=== PATIENT | female | born 1940 | race Caucasian/White ===

== ENCOUNTER 2017-01-11 10:29 | Emergency (ER) | payer MEDICARE ==
[2017-01-11 11:36] LABS: Hematocrit 34 % (35-47); Hemoglobin 11.2 g/dl (12.0-16.0); Mean Corpuscular HGB Conc 33 g/dl (31-36); Mean Corpuscular Hemoglobin 27 pg (27-31); Mean Corpuscular Volume 84 fL (80-97); Mean Platelet Volume 9 um3 (7.4-10.4); Red Blood Count 4.08 10^6/ul (4.0-5.4); Red Cell Distribution Width 15 % (10.5-15); White Blood Count 10.6 10^3/ul (3.5-10.8)
[2017-01-11 11:53] LABS: Albumin 3.9 g/dL (3.2-5.2); BUN/Creatinine Ratio 20.7 (8-20); C Reactive Protein 2.47 mg/L (< 5.00); Calcium 9.6 mg/dL (8.6-10.3); EGFR African American 87.2 (>60); EGFR Non-African American 67.8 (>60); Potassium 3.9 mmol/L (3.5-5.0); Total Bilirubin 0.9 mg/dL (0.2-1.0); Total Protein 5.9 g/dL (6.4-8.9)
[2017-01-11] MEDS ORDERED: Iohexol 300* (CONTRAST) 10 ML SDV IV ONE (11:58)
--- NOTE | 2017-01-11 12:44 | RAD ---
HISTORY: Dysphagia COMPARISONS: August 08, 2013, PET/CT dated August 14, 2013 TECHNIQUE: Multiple contiguous axial CT scans were obtained of the neck after the administration of nonionic intravenous contrast, with coronal and sagittal multiplanar reformations. FINDINGS: BRAIN AND ORBITS: The visualized brain and orbits are normal. PARANASAL SINUSES: The visualized paranasal sinuses are clear. SALIVARY GLANDS: The parotid glands, submandibular glands, sublingual glands are normal. NASAL CAVITY/NASOPHARYNX: The nasal cavity and nasopharynx are normal. ORAL CAVITY/OROPHARYNX: The oral cavity is obscured by streak artifact from dental amalgam. The visualized oral cavity and oropharynx are unremarkable. LARYNGEAL APPARATUS/HYPOPHARYNX: The laryngeal apparatus and hypopharynx are normal. UPPER AIRWAY/UPPER ESOPHAGUS: The visualized upper airway and esophagus are normal. LUNG APICES: The lung apices are clear. THYROID GLAND: The thyroid is heterogeneous with multiple small nodules measuring up to 1 cm in size. LYMPH NODES: There are scattered small, less than 1 cm short axis, lymph nodes noted along the anterior and posterior cervical chain. There is no lymphadenopathy by size criteria. There is been interval resolution of the lymphadenopathy noted on the previous examination. VASCULATURE: There is calcification of the carotid bifurcations. BONES AND SOFT TISSUES: Degenerative changes are noted OTHER: None. IMPRESSION: INTERVAL RESOLUTION OF THE LYMPHADENOPATHY NOTED ON THE PREVIOUS EXAMINATION. MULTINODULAR GOITER. OTHERWISE UNREMARKABLE CT OF THE NECK. THE AIRWAY IS WIDELY PATENT.
[2017-01-11 14:36] VITALS: BP 132/58
--- NOTE | 2017-01-11 17:25 | ED ---
Bonnie Arvizu Gabriel, scribed for Isma Gates MD on 01/11/17 at 1108 . Respiratory - HPI Summary HPI Summary: This patient is a 76 year old F presenting to [facility] accompanied by family with a chief complaint of her throat closing up since last night. Pt reports having difficulty breathing and swallowing. She also reports positive exposure to an ill woman. Patient denies any pain. - History of Current Complaint Chief Complaint: EDGeneral Stated Complaint: FEELS LIKE THROAT IS CLOSING Time Seen by Provider: 01/11/17 10:49 Hx Obtained From: Patient Onset/Duration: Still Present Initial Severity: Severe - Pt claims it was very bad last night Current Severity: Mild Pain Intensity: 0 Sputum Amount: None Alleviating Factor(s): Nothing - Allergy/Home Medications Allergies/Adverse Reactions: Allergies Allergy/AdvReac Type Severity Reaction Status Date / Time Sulfa Antibiotics Allergy Headache Verified 08/08/13 12:45 Terbinafine [From Lamisil] Allergy GI Upset Verified 08/08/13 12:45 PMH/Surg Hx/FS Hx/Imm Hx Previously Healthy: No Endocrine/Hematology History: Denies: Hx Diabetes Cardiovascular History: Denies: Hx Hypertension - Cancer History Cancer Type, 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 Infectious Disease History: No Infectious Disease History: Denies: Traveled Outside the [place] in Last 30 Days - Family History Known Family History: Positive: Hypertension, Diabetes, Other - Father had bladder cancer - Social History Alcohol Use: None Substance Use Type: Reports: None Smoking Status (MU): Never Smoked Tobacco Review of Systems Positive: Other - Difficulty breathing and swallowing Negative: Myalgia - denies general pain All Other Systems Reviewed And Are Negative: Yes Physical Exam - Summary Physical Exam Summary: Appearance: Well-appearing Eyes: Normal, Conjunctiva clear ENT: Normal ENT inspection. Pharynx normal, negative pharyngeal erythema, negative tonsillar exudate, TMs normal, negative TMs dull, negative TMs bulging , negative TMs red Speech: Patient has a slightly muffled voice. Dental: Normal Neck: Supple, non-tender, no lymphadenopathy Lungs: Lungs clear, normal breath sounds, no respiratory distress, no accessory muscle use Heart: RRR, no murmur, pulses normal. Abdomen: Nontender, soft. Musculoskeletal: Normal Neurological: Normal Psychiatric: Normal Skin: Normal Triage Information Reviewed: Yes Vital Signs On Initial Exam: Initial Vitals Temp Pulse Resp BP Pulse Ox 97.9 F 87 18 131/63 94 01/11/17 10:30 01/11/17 10:30 01/11/17 10:30 01/11/17 10:30 01/11/17 10:30 Vital Signs Reviewed: Yes - [place] Coma Scale Coma Scale Total: 15 Diagnostics - Vital Signs Vital Signs Temp Pulse Resp BP Pulse Ox 01/11/17 10:30 97.9 F 87 18 131/63 94 - Laboratory Lab Results: Lab Results 01/11/17 01/11/17 01/11/17 Range/Units 11:15 11:15 13:42 WBC 10.6 (3.5-10.8) 10^3/ul RBC 4.08 (4.0-5.4) 10^6/ul Hgb 11.2 L (12.0-16.0) g/dl Hct 34 L (35-47) % MCV 84 (80-97) fL MCH 27 (27-31) pg MCHC 33 (31-36) g/dl RDW 15 (10.5-15) % Plt Count 208 (150-450) 10^3/ul MPV 9 (7.4-10.4) um3 Neut % (Auto) 77.0 (38-83) % Lymph % (Auto) 12.1 L (25-47) % [place] % (Auto) 9.7 H (1-9) % Eos % (Auto) 0.7 (0-6) % Baso % (Auto) 0.5 (0-2) % Absolute Neuts (auto) 8.2 H (1.5-7.7) 10^3/ul Absolute Lymphs (auto) 1.3 (1.0-4.8) 10^3/ul Absolute Monos (auto) 1.0 H (0-0.8) 10^3/ul Absolute Eos (auto) 0.1 (0-0.6) 10^3/ul Absolute Basos (auto) 0 (0-0.2) 10^3/ul Absolute Nucleated RBC 0 10^3/ul Nucleated RBC % 0 Sodium 134 (133-145) mmol/L Potassium 3.9 (3.5-5.0) mmol/L Chloride 102 (101-111) mmol/L Carbon Dioxide 26 (22-32) mmol/L Anion Gap 6 (2-11) mmol/L BUN 17 (6-24) mg/dL Creatinine 0.82 (0.51-0.95) mg/dL Est GFR ( Amer) 87.2 (>60) Est GFR (Non-Af Amer) 67.8 (>60) BUN/Creatinine Ratio 20.7 H (8-20) Glucose 114 H (70-100) mg/dL Calcium 9.6 (8.6-10.3) mg/dL Total Bilirubin 0.90 (0.2-1.0) mg/dL AST 24 (13-39) U/L ALT 21 (7-52) U/L Alkaline Phosphatase 85 (34-104) U/L C-Reactive Protein 2.47 (< 5.00) mg/L Total Protein 5.9 L (6.4-8.9) g/dL Albumin 3.9 (3.2-5.2) g/dL Globulin 2.0 (2-4) g/dL Albumin/Globulin Ratio 2.0 (1-3) Group A Strep Rapid Negative (Negative) Result Diagrams: 01/11/17 11:15 01/11/17 11:15 Lab Statement: Any lab studies that have been ordered have been reviewed, and results considered in the medical decision making process. - CT CT Neck CT Interpretation Completed By: Radiologist - INTERVAL RESOLUTION OF THE LYMPHADENOPATHY NOTED ON THE PREVIOUS EXAMINATION. MULTINODULAR GOITER. OTHERWISE UNREMARKABLE CT OF THE NECK. THE AIRWAY IS WIDELY PATENT.ED physician has reviewed this radiology report and agrees. Disposition - Course Course Of Treatment: Ms. Louie presented having awakened this AM with the feeling that her throat was closing off and her voice was different. She has a history of leukemia with extensive cervical lymphadenopathy causing the same type of symptoms three years ago. This was ruled out with a CT scan. I think this is likely viral. Her chest was not imaged and a mass pressing on the recurrent laryngeal nerve could conceivably cause thes symptoms. She was not having any problems breathing or swallowing and I recommended close F/U. - Diagnoses Provider Diagnoses: Laryngitis Discharge - Discharge Plan Condition: Stable Disposition: HOME Patient Education Materials: Laryngitis (ED) Referrals: Ford Correa MD [Primary Care Provider] - Additional Instructions: Follow up with Dr. Saavedra and Dr. Correa in 3-4 days. RETURN TO THE EMERGENCY DEPARTMENT FOR CHANGING OR WORSENING SYMPTOMS. The documentation as recorded by the Bonnie justice Gabriel accurately reflects the service I personally performed and the decisions made by me, Isma Gates MD.
== END 2017-01-11 14:36 | disposition home or self-care (01) ==
LOC: ED 10:29
DX: J04.0 Acute laryngitis (principal)
CPT/HCPCS: 36415; 70491; 80053; 85025; 86140; 87651; 99282; Q9967

== ENCOUNTER 2017-01-16 11:17 | Emergency (ER) | payer MEDICARE ==
[2017-01-16] MEDS ORDERED: guaiFENesin/CODIEN 100MG-10MG* 5 ML UDC PO ONE (11:49)
--- NOTE | 2017-01-16 12:23 | RAD ---
INDICATION: Cough COMPARISON: None TECHNIQUE: PA and lateral views of the chest were obtained. FINDINGS: There appears to be a mild degree of cardiomegaly. The heart and mediastinum otherwise are normal in contour. The pulmonary vasculature appears mildly indistinct and possibly engorged. There is no focal or lobar consolidation. The diaphragm and costophrenic angles are adequately defined. Visualized bones are normal for the patient's age. There is no radiographic evidence of free air beneath the diaphragm IMPRESSION: IN THE CORRECT CLINICAL PRESENTATION THE CHEST X-RAY FINDINGS COULD BE SEEN IN THE SETTING OF MILD CARDIOGENIC PULMONARY EDEMA.
--- NOTE | 2017-01-16 13:45 | RAD ---
INDICATION: Worsening cough and congestion over the past 5 days. COMPARISON: PET/CT dated August 14, 2013 TECHNIQUE: Axial source images of the chest were acquired without intravenous contrast from just above the lung apices to the base of the diaphragm. Coronal and sagittal reconstructed images were acquired. FINDINGS: Unless otherwise specified comparisons made below reference the August 14, 2013 PET/CT. Overall the lungs exhibit centrilobular emphysematous changes. At the right middle lobe there is a 4 mm pulmonary nodule (image 36) not A seen on the previous PET/CT. At the same level there is a 2 mm pulmonary nodule more anteriorly located that appears to correspond to the same nodule seen on the prior PET/CT. There is a small right-sided pleural effusion not seen on the prior PET/CT. The heart is moderately enlarged measuring greater than 50% the width of the thorax. There is calcified atherosclerosis at the coronary arteries and arch of the aorta. There is no readily apparent mediastinal, hilar, or axillary lymphadenopathy. Degenerative changes of the thoracic spine includes loss of intervertebral disc height, marginal osteophyte formation, vacuum disc phenomenon and endplate sclerosis at L1/L2 and L2/L3. There are no definite suspicious focal bone lesions. Limited views of the upper abdomen show no acute abnormalities. IMPRESSION: 1. Interval finding since the August 14, 2013 PET/CT are most consistent with mild cardiogenic pulmonary edema including a small right-sided pleural effusion. 2. There is a 4 mm pulmonary nodule of the right middle lobe not definitely seen on the previous CT examination. This can be followed according to the Fleischner Society criteria. THE RECOMMENDATIONS FOR FOLLOWUP AND MANAGEMENT OF AN INCIDENTALLY DETECTED PULMONARY NODULE LESS THAN 6 MM IN SIZE, IN A PATIENT WITHOUT A HISTORY OF MALIGNANCY, INCLUDE NO FOLLOWUP FOR A LOW-RISK PATIENT OR OPTIONAL FOLLOWUP CT IN 12 MONTHS FOR A HIGH RISK PATIENT. NOTES: SIZE = AVERAGE LENGTH AND WIDTH; HIGH RISK IS DEFINED A HISTORY OF SMOKING OR OTHER KNOW RISK FACTORS FOR LUNG CANCER; LOW RISK IS DEFINED MINIMAL OR ABSENT HISTORY OF SMOKING OR OTHER KNOWN RISK FACTORS. Hiren Raymundo, HAYLEE Armijo, HUMERA Smith, et al (2017) "Guidelines for Management of Incidental Pulmonary Nodules Detected on CT Images: From the Fleischner Society 2017." Radiology; 284(1): 228-243. doi:10.1148/radiol.[id number]
[2017-01-16 14:18] VITALS: BP 144/73
--- NOTE | 2017-01-16 16:12 | ED ---
Chepe Arvizu SooYoung, scribed for Isma Gates MD on 01/16/17 at 1142 . Respiratory - HPI Summary HPI Summary: A 76 y/o F presents to ED with c/o losing her voice onset 6 days ago and worsening 5 days ago. Pt was last seen in ED on 01/11/17, dx: laryngitis, and has not improved since. Associated sx: dyspnea, productive cough, mild sinus congestion, watery eyes. OTC medicines have not alleviated the cough. - History of Current Complaint Chief Complaint: EDUpperRespComplaint Stated Complaint: COUGH/DIFF BREATHING Time Seen by Provider: 01/16/17 11:38 Hx Obtained From: Patient, Family/Admissions Counselor Onset/Duration: Gradual Onset, Lasting Days, Still Present Timing: Constant Initial Severity: Moderate Current Severity: Moderate Pain Intensity: 0 - out of 10 Character: Cough (Productive), Dyspnea at Rest Associated Signs and Symptoms: Nasal Congestion, Dyspnea, Hoarseness - loss of voice - Allergy/Home Medications Allergies/Adverse Reactions: Allergies Allergy/AdvReac Type Severity Reaction Status Date / Time Sulfa Antibiotics Allergy Headache Verified 08/08/13 12:45 Terbinafine [From Lamisil] Allergy GI Upset Verified 08/08/13 12:45 PMH/Surg Hx/FS Hx/Imm Hx Previously Healthy: No Endocrine/Hematology History: Denies: Hx Diabetes Cardiovascular History: Denies: Hx Hypertension - Cancer History Cancer Type, 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 - Surgical History Surgery Procedure, Year, and Place: C-SECTIONS X 3, HYSTERECTOMY, BLADDER SURGERY, TRIGGER FINGER X 2, [place] Infectious Disease History: No Infectious Disease History: Denies: Traveled Outside the [place] in Last 30 Days - Family History Known Family History: Positive: Hypertension, Diabetes, Other - Father had bladder cancer - Social History Occupation: Retired Lives: With Family Alcohol Use: None Hx Substance Use: No Substance Use Type: Reports: None Hx Tobacco Use: No Smoking Status (MU): Never Smoked Tobacco Review of Systems Positive: Drainage Positive: Other - loss of voice/hoarseness; chest congestion Positive: Cough, Other - pos: dyspnea All Other Systems Reviewed And Are Negative: Yes Physical Exam - Summary Physical Exam Summary: The patient is well-nourished in no acute distress and in no acute pain. The skin is warm and dry and skin color reflects adequate perfusion. HEENT: The head is normocephalic and atraumatic. The pupils are equal and reactive. The conjunctivae are clear and without drainage. Nares are patent and without drainage. Mouth reveals moist mucous membranes and the throat is without erythema and exudate. Pt's is whispering, has lost voice. The external ears are intact. The ear canals are patent and without drainage. The tympanic membranes are intact. Neck is supple with full range of motion and non-tender. There are no carotid bruits. There is no neck vein distension. Respiratory: Chest is non-tender. Lungs are clear to auscultation and breath sounds are symmetrical and equal. Cardiovascular: Heart is regular rate and rhythm. There is no murmur or rub auscultated. There is no peripheral edema and pulses are symmetrical and equal. Abdomen: The abdomen is soft and non-tender. There are normal bowel sounds heard in all four quadrants and there is no organomegaly palpated. Musculoskeletal: There is no back pain noted. Extremities are non-tender with full range of motion. There is good capillary refill. There is no peripheral edema or calf tenderness elicited. Neurological: Patient is alert and oriented to person, place and time. The patient has symmetrical motor strength in all four extremities. Cranial nerves are grossly intact. Deep tendon reflexes are symmetrical and equal in all four extremities. Psychiatric: The patient has an appropriate affect and does not exhibit any anxiety or depression. Triage Information Reviewed: Yes Vital Signs On Initial Exam: Initial Vitals Temp Pulse Resp BP Pulse Ox 98.4 F 95 18 129/71 96 01/16/17 11:19 01/16/17 11:19 01/16/17 11:19 01/16/17 11:19 01/16/17 11:19 Vital Signs Reviewed: Yes Diagnostics - Vital Signs Vital Signs Temp Pulse Resp BP Pulse Ox 01/16/17 11:19 98.4 F 95 18 129/71 96 - Laboratory Lab Statement: Any lab studies that have been ordered have been reviewed, and results considered in the medical decision making process. - Radiology CXR Xray Interpretation: Positive (See Comments) - IMPRESSION: In the correct clinical presentation the CXR findings could be seen in the setting of mild cardiogenic pulmonary edema. ED physician has reviewed this radiology report and agrees. Radiology Interpretation Completed By: Radiologist - CT CHEST CT CT Interpretation: Positive (See Comments) - IMPRESSION: 1. Interval finding since the August 14, 2013 PET/CT are most consistent with mild cardiogenic pulmonary edema including a small right-sided pleural effusion. 2. There is a 4 mm pulmonary nodule of the right middle lobe not definitely seen on the previous CT examination. This can be followed according to the Fleischner Society criteria. THE RECOMMENDATIONS FOR FOLLOWUP AND MANAGEMENT OF AN INCIDENTALLY DETECTED PULMONARY NODULE LESS THAN 6 MM IN SIZE, IN A PATIENT WITHOUT A HISTORY OF MALIGNANCY, INCLUDE NO FOLLOWUP FOR A LOW-RISK PATIENT OR OPTIONAL FOLLOWUP CT IN 12 MONTHS FOR A HIGH RISK PATIENT. NOTES: SIZE = AVERAGE LENGTH AND WIDTH; HIGH RISK IS DEFINED A HISTORY OF SMOKING OR OTHER KNOW RISK FACTORS FOR LUNG CANCER; LOW RISK IS DEFINED MINIMAL OR ABSENT HISTORY OF SMOKING OR OTHER KNOWN RISK FACTORS. ED physician has reviewed this radiology report and agrees. CT Interpretation Completed By: Radiologist Re-Evaluation - Re-Evaluation 1 Re-Evaluation Time: 12:35 Change: Unchanged Comment: Discussing results pt and . Discussing doing CT scan. Pt agrees. 2 Re-Evaluation Time: 13:56 Change: Unchanged Comment: Discussing CT results with pt. Pt voiced understanding. Disposition - Course Course Of Treatment: I saw Ms. Louie 5 days ago for similar symptoms which have now worsened and include a cough. I thought it was all viral at the time but was a little concerned for the possibility of a chest mass. That was ruled out today and I am continuing to treat her symptomatically. - Diagnoses Provider Diagnoses: Laryngitis, URI (upper respiratory infection) Discharge - Discharge Plan Condition: Stable Disposition: HOME Prescriptions: Guaifenesin-Codeine [Codeine/Guaifenesin 100-10 mg/5Ml] 1 sirena PO Q4HR PRN #25 sirena MDD 5 PRN Reason: Cough Patient Education Materials: Guaifenesin (By mouth), Laryngitis (ED), Upper Respiratory Infection (ED) Referrals: Ford Correa MD [Primary Care Provider] - 1 Week (Follow up this week.) Stacia Saavedra MD [Medical Doctor] - 1 Week (Follow up this week.) Additional Instructions: Please follow up with both your primary care provider and Dr. Saavedra, oncology , this week. Please return to the ED if you experience new or worsening symptoms. The documentation as recorded by the Chepe justice SooYoung accurately reflects the service I personally performed and the decisions made by me, Isma Gates MD.
== END 2017-01-16 14:16 | disposition home or self-care (01) ==
LOC: ED 11:17
DX: J06.9 Acute upper respiratory infection, unspecified (principal); R09.81 Nasal congestion; R06.00 Dyspnea, unspecified; J04.0 Acute laryngitis
CPT/HCPCS: 71020; 71250; 99282; A9270-GY

== ENCOUNTER 2017-01-17 11:09 | Emergency (ER) | payer MEDICARE ==
[2017-01-17 15:10] VITALS: BP 149/72
--- NOTE | 2017-01-17 17:10 | ED ---
Throat Pain/Nasal Congestion - HPI Summary HPI Summary: Pt here w/ nasal congestion. States she can't breath out of her nose d/t congestion so has been mouth breathing at night. She reports mouth is dry as a result. She reports URI sx started on 01/10/2017 with laryngitis. She came to ED following day - reported she felt like her throat was closing the night before and she had trouble breathing - felt like she couldn't swallow. Dr. Gates examined pt and assessed labs as well as a soft tissue neck CT as pt has a h/o leukemia involving with extensive cervical lymphadenopathy causing the same type of symptoms three years ago. This was ruled out with a CT scan on . Dr. Gates suspected the pt's sx were viral as she had been exposed to an ill woman prior to sx starting. Per note, pt was not having problems breathing or swallowing that day however close f/u was recommended (d/c states see PCP and Dr. Saavedra in 3-4 days). Pt and admit she did not f/u w/ PCP. Tried home remedies and on 01/16/2017 returned to ED with ongoing laryngitis and a cough. Was seen again by Dr. Gates who was concerned for a chest mass possibly pressing onto laryngeal nerve - chest CT was ordered and revealed....... Her PE notes and vitals continue to be WNL. She was again dx'd w / viral URI and sent home with guaifenesin and codeine for cough. She reports taking the medication w/o relief of cough last night. Today, she is not concerned about cough but rather nasal congestion. States this plugged her breathing through nose last night causing her to mouth breath making her mouth even more dry than usual (states she takes chemo medications through Dr. Saavedra that typically cause dry mouth anyway - worse today). She has not tried a humidifier and heat in house is 70F. She also has not tried saline nasal wash/spray, nasal spray of any type nor blowing nose in the shower, etc. She has been drinking water but this is sore. Decreased appetite as she states she can't taste food. Today she also has onset of B/L eye discharge - wiped out this morning after waking. Vision is blurred when d/c is in eyes - mild irritation but otherwise seeing well. Has not tried anything in eyes since this started and wears glasses (not wearing contact lenses) and does not wear make- up. Asked if she's had h/o sinus infection - she admits maybe in the past, not sure if this feels the same today. Denies fever, chills, N/V/D, chest pain, SOB , ab pain, leg swelling, body aches, headache or neck pain. No recent anbx or steroids. 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 Saavedra Denies: Hx Anticoagulant Therapy, Hx Diabetes Cardiovascular History: Denies: Hx Hypertension Respiratory History: Denies: Hx Asthma, Hx Chronic Obstructive Pulmonary Disease (COPD), Hx Sleep Apnea - Cancer History Cancer Type, 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 - Surgical History Surgery Procedure, Year, and Place: C-SECTIONS X 3, HYSTERECTOMY, BLADDER SURGERY, TRIGGER FINGER X 2, B[facility] Infectious Disease History: No Infectious Disease History: Denies: Traveled Outside the [place] in Last 30 Days - Family History Known Family History: Positive: Hypertension, Diabetes, Other - Father had bladder cancer - Social History Occupation: Retired Lives: With Family - Alcohol Use: None Hx Substance Use: No Substance Use Type: Reports: None Hx Tobacco Use: No Smoking Status (MU): Never Smoked Tobacco Review of Systems Constitutional: Negative Negative: Fever, Chills, Fatigue Positive: Drainage Positive: Sore Throat, Other - nasal congestion. Negative: Ear Ache Cardiovascular: Negative Negative: Palpitations, Chest Pain Respiratory: Negative Positive: Cough - dry, better today. Negative: Shortness Of Breath Gastrointestinal: Negative Negative: Abdominal Pain, Vomiting, Diarrhea, Nausea Genitourinary: Other - still urinating Negative: dysuria, discharge, frequency, flank pain, hematuria, incontinence, pain, urgency Musculoskeletal: Negative Negative: Arthralgia, Myalgia Skin: Negative Negative: Rash Neurological: Negative Negative: Headache, Weakness, Paresthesia, Numbness, Syncope, Slurred Speech Psychological: Normal All Other Systems Reviewed And Are Negative: Yes Physical Exam Triage Information Reviewed: Yes Vital Signs On Initial Exam: Initial Vitals Temp Pulse Resp BP Pulse Ox 98.4 F 94 16 142/76 95 01/17/17 11:21 01/17/17 11:21 01/17/17 11:21 01/17/17 11:21 01/17/17 11:21 Vital Signs Reviewed: Yes Appearance: Positive: No Pain Distress - pt is sleeping upon entrance. She is easily rousable and is present w/ her., Well-Nourished Skin: Positive: Warm, Dry - no rash, no turgor Head/Face: Positive: Normal Head/Face Inspection - Sinuses NTTP Eyes: Positive: EOMI, PILO, Conjunctiva Inflammed - mild, Discharge - purulent d /c in B/L eyes, Other: - sclera are clear and w/o lesions -B/L eyes cleaned with sterile eye wash - pt reports improvement of vision and relief of irritation ENT: Positive: Hearing grossly normal, Pharyngeal erythema - cobblestoning, Nasal congestion - dried mucous occluding B/L nasal passages - no erythema, no edema, no bleeding observed of mucosal tissue, TMs normal, Uvula midline, Other - oral mucosa dry - appears raw in areas w/ white coating and mild erythema in areas. Negative: Tonsillar swelling, Tonsillar exudate, Sinus tenderness Dental: Negative: Abscess @ Neck: Positive: Supple, Nontender, No Lymphadenopathy Respiratory/Lung Sounds: Positive: Clear to Auscultation, Breath Sounds Present. Negative: Rales, Rhonchi, Stridor, Wheezes Cardiovascular: Positive: Normal, RRR, S1, S2. Negative: Murmur, Rub, Leg Edema Left, Leg Edema Right Abdomen Description: Positive: Nontender, No Organomegaly, Soft Bowel Sounds: Positive: Present Pelvic Exam: Positive: other - deferred Musculoskeletal: Positive: Normal, Strength/ROM Intact Neurological: Positive: Normal, Sensory/Motor Intact, Alert, Oriented to Person Place, Time, CN Intact II-III Psychiatric: Positive: Normal - Rudolph Coma Scale Coma Scale Total: 15 Diagnostics - Vital Signs Vital Signs Temp Pulse Resp BP Pulse Ox 01/17/17 15:09 98.7 F 93 22 149/72 93 01/17/17 11:21 98.4 F 94 16 142/76 95 - Laboratory Lab Statement: Any lab studies that have been ordered have been reviewed, and results considered in the medical decision making process. EENT Course/Dx - Course Course Of Treatment: Pt presents for 3rd visit to ED in past 7 days (was seen by Dr. Gates 01/11/2017 and 01/16/2017 - labs and imaging performed as in HPI). She has been dx'd w/ viral URI and has been trying OTC meds w/o relief. After being seen yesterday, she was rx'd guaifenesin w/ codeine for cough. Today she is reporting nasal congestion w/o trying nasal products for relief. Concerned that perhaps guaifenesin which can cause mucosal dryness along w/ mouth breathing in conjunction w/ her chemo meds causing dry mouth exacerbated these sx last night. Her previous notes (HPI and PE) do not indicate mucosal dryness and pt does not report oral dryness until today. Encouraged again humidification , turning heat to 68F or less to avoid loss of moisture in the air, saline nasal wash, blowing nose in hot shower to dislodge copious nasal blockage from dry nasal phlegm and trying fluids in addition to water such as broth, smoothies , etc. Discussed w/ Dr. Roblero to see if she needed PO anbx for possible bacterial infection of resp tract - decided to refrain at this time as she recently had labs performed, vitals are unremarkable and she does not take steroids, etc. She does not appear to have a sinus infection, ear infection and chest is still clear (CXR and CT performed yesterday). She and agree w/ plan. She also has B/L onset of conjunctivitis. Pt reports feeling better after cleaning eyes today - cx taken as she is immunopcompromised - advised saline eye wash until cx returns to avoid chemical irritation from unnecessary anbx as typically B/L onset of conjunctivitis is viral. She and agree w / plan. Regarding her dry oral mucous membranes, discussed w/ Dr. Roblero who suggests this could be thrush as again, pt is immunocompromised. This could explain dysphaghia and oral presentation. Magic mouthwash was discussed w/ pt and - they agree w/ plan. Advised close f/u w/ PCP or Dr. Saavedra. Asked pt and if they have followed-up yet with PCP and they said they called today but couldn't get in for an appt. Discussed that oral thrush needs follow-up with PCP or Dr. Saavedra as system is working hard to fight infection - call to schedule BENNY. Also discussed if oral thrush is treated but mucous membranes remain dry, speak with Dr. Saavedra about possible medication adjusment. Pt agrees w/ plan. - Diagnoses Provider Diagnoses: URI (upper respiratory infection), Thrush, Viral conjunctivitis of both eyes Discharge - Discharge Plan Condition: Stable Disposition: HOME Prescriptions: Magic M W2 Duarte/Maal/Nyst/Lido* 5 ml SWISH SWAL QID #200 ml Patient Education Materials: Oral Candidiasis (ED), Upper Respiratory Infection (ED) Referrals: Ford Correa MD [Primary Care Provider] - Additional Instructions: You appear to have a viral infection lasting 7 days now. This may continue for another 7 days (or longer). *For your viral conjunctivitis, you may flush your eyes multiple times a day with saline solution. *For your nasal congestion, it is advised that you try blowing your nose while in a hot/steamy shower - you may recreate this by also using a facial steam and saline nasal spray to keep mucosa moist. If congestion persists despite clearing mucous from nose, you may try Afrin nasal spray 2 x day for 3 days only. *Continue to use humidification and lower heat to 68F or less to avoid dry air. *If your medication continues to cause excessive dryness of mucous membranes, consult with your oncologist for supportive care or alternative medication. *For your oral dryness, you are encouraged to stay hydrated. There is concern you may have secondary thrush here - an oral swish and swallow medication was started today. Complete course and follow-up with PCP. Call your PCP today for follow-up. *If you develop fever, chills, nausea, vomiting, diarrhea, difficulty breathing/ swallowing, return to ED
--- NOTE | 2017-01-19 09:50 | PN ---
Progress Note - Progress Note Date of Service: 01/17/17 Note: wound culture results obtained. preliminary showed 1+ h flu. however final showed no organisms. patient was admitted. no further changes required at this time.
== END 2017-01-17 15:09 | disposition home or self-care (01) ==
LOC: ED 11:09
DX: J06.9 Acute upper respiratory infection, unspecified (principal); B37.9 Candidiasis, unspecified; B30.9 Viral conjunctivitis, unspecified; Z88.2 Allergy status to sulfonamides
CPT/HCPCS: 87070; 87077; 87185; 87205; 99282

== ENCOUNTER 2017-01-17 17:35 | Inpatient (IN) | payer MEDICARE ==
[2017-01-17] MEDS: NS 0.9% 1000 ML* 1,000 ML IV SCH (18:28)
[2017-01-17] MEDS: Azithromycin IV(*) 500 MG in NS 0.9% 250 ML* 250 ML IVPB SCH (19:09)
[2017-01-17] MEDS: Famotidine TAB* 20 MG PO SCH (20:29)
[2017-01-17] MEDS: Benzonatate CAP* 100 MG PO SCH (20:30)
[2017-01-17] MEDS: Erythromycin OPTH OINT* APPLIC OINT BOTH EYES SCH (20:31)
[2017-01-17] MEDS: Heparin VIAL(*) 5000 UNITS/ML VIAL (FIVE THOUSAND) SUBCUT SCH (20:31)
[2017-01-17] MEDS: guaiFENesin/CODIEN 100MG-10MG* 5 ML UDC PO PRN (23:13)
[2017-01-18] MEDS: NS 0.9% 1000 ML* 1,000 ML IV SCH (02:33)
[2017-01-18] MEDS: guaiFENesin/CODIEN 100MG-10MG* 5 ML UDC PO PRN (04:12)
[2017-01-18 05:05] LABS: Hematocrit 32 % (35-47); Hemoglobin 10.7 g/dl (12.0-16.0); Mean Corpuscular HGB Conc 33 g/dl (31-36); Mean Corpuscular Hemoglobin 27 pg (27-31); Mean Corpuscular Volume 81 fL (80-97); Mean Platelet Volume 9 um3 (7.4-10.4); Red Blood Count 3.98 10^6/ul (4.0-5.4); Red Cell Distribution Width 14 % (10.5-15); White Blood Count 13.5 10^3/ul (3.5-10.8)
[2017-01-18 05:07] LABS: Comments Flag Yes
[2017-01-18 05:39] LABS: Albumin 3.5 g/dL (3.2-5.2); BUN/Creatinine Ratio 17.4 (8-20); Calcium 8.2 mg/dL (8.6-10.3); EGFR African American 169.9 (>60); EGFR Non-African American 132.1 (>60); Globulin 2.4 g/dL (2-4); Potassium 3.8 mmol/L (3.5-5.0); Total Bilirubin 0.8 mg/dL (0.2-1.0); Total Protein 5.9 g/dL (6.4-8.9)
[2017-01-18] MEDS: Heparin VIAL(*) 5000 UNITS/ML VIAL (FIVE THOUSAND) SUBCUT SCH ×2 (06:07→15:11)
[2017-01-18] MEDS ORDERED: Morphine INJ* 2 MG/ML 1 ML SYRINGE (TWO MG - NEW SYRINGE VERSION) ONE (06:43)
--- NOTE | 2017-01-18 07:54 | RAD ---
HISTORY: Respiratory distress COMPARISONS: CT dated January 16, 2017, chest x-ray dated January 16, 2017. VIEWS: 1: frontal portable view of the chest at 7:30 AM FINDINGS: LINES AND TUBES: None. CARDIOMEDIASTINAL SILHOUETTE: The cardiac silhouette is enlarged. The cardiomediastinal silhouette is otherwise normal for portable technique. PLEURA: The costophrenic angles are sharp. No pleural abnormalities are noted. LUNG PARENCHYMA: There is a diffuse pattern of reticular opacification, increased from the previous examination. There has been interval development of confluent alveolar opacification of the right lower lung ABDOMEN: The upper abdomen is clear. There is no subphrenic gas. BONES AND SOFT TISSUES: No bone or soft tissue abnormalities are noted. IMPRESSION: 1. CARDIOMEGALY WITH MILD PULMONARY INTERSTITIAL EDEMA. 2. RIGHT LOWER LUNG CONSOLIDATION.
[2017-01-18 08:13] LABS: Albumin 3.3 g/dL (3.2-5.2); BUN/Creatinine Ratio 18.2 (8-20); Calcium 8.2 mg/dL (8.6-10.3); EGFR African American 178.8 (>60); Potassium 3.8 mmol/L (3.5-5.0); Total Protein 5.7 g/dL (6.4-8.9)
[2017-01-18 08:14] LABS: Globulin 2.4 g/dL (2-4); Total Bilirubin 0.7 mg/dL (0.2-1.0)
[2017-01-18] MEDS: Azithromycin IV(*) 500 MG in NS 0.9% 250 ML* 250 ML IVPB SCH (10:02)
[2017-01-18] MEDS: Benzonatate CAP* 100 MG PO SCH ×3 (10:05→20:47)
[2017-01-18] MEDS: Aspirin EC Low Dose* 81 MG TAB.EC PO SCH (10:05)
[2017-01-18] MEDS: Famotidine TAB* 20 MG PO SCH ×2 (10:05→20:47)
[2017-01-18] MEDS: Erythromycin OPTH OINT* APPLIC OINT BOTH EYES SCH ×3 (10:09→20:48)
[2017-01-18] MEDS: Multivitamins/Minerals TAB PO SCH (10:12)
[2017-01-18] MEDS: Calcium/Vitamin D TAB 250/125* TAB PO SCH (10:12)
[2017-01-18] MEDS ORDERED: Sodium Chloride 3% HYPERTONIC* 500 ML IVPB SCH (11:00)
--- NOTE | 2017-01-18 11:02 | ECHO ---
Patient: MOHAMUD MENEZES [facility] Rec#: [id number] : 1940 Date: 01/18/2017 Age: 76y Height: 155 cm / 61.0 in Weight: 67 kg / 147.7 lbs Sex: F BSA: 1.7 Room#: 407 Admit Date#: 01/17/2017 Type: Inpatient Referring: Quentin BENDER,Stacia Smith Reading: Brain Lyons MD Commissioned Police Officer: Pat Villatoro RN RDCS CC: Ford Correa MD Transthoracic Echocardiogram Indication: CHF BP: 163/82 HR: 97 Rhythm: A-Fib Findings History: CLL, HLD, OA, osteoporosis Technical Comments: The study is technically limited due to poor apical windows. The study is technically limited due to patient body habitus. The study was technically limited due to the patient's inability to lay in the left lateral decubitus position. The patient was sitting upright in bed during the exam. Completed at 1045. Left Ventricle: The left ventricular chamber size is normal. Moderate concentric left ventricular hypertrophy is observed. Global left ventricular wall motion and contractility are within normal limits. There is mildly decreased left ventricular systolic function. The estimated ejection fraction is 45-50%. Visually estimated LVEF is 45 %. The assessment of diastolic function is non-diagnostic. Left Atrium: The left atrium is moderately dilated. Right Ventricle: The right ventricular cavity size is normal. The right ventricular global systolic function is normal. Right Atrium: The right atrium is moderately dilated. Aortic Valve: The aortic valve is trileaflet. The aortic valve leaflets are mildly thickened. There is mild aortic regurgitation. There is no evidence of aortic stenosis. Mitral Valve: The mitral valve leaflets are mildly thickened. There is mild to moderate mitral regurgitation. There is no evidence of mitral stenosis. Tricuspid Valve: The tricuspid valve leaflets are normal. There is moderate to severe tricuspid regurgitation. There is evidence of moderate pulmonary hypertension. There is no tricuspid stenosis. Pulmonic Valve: The pulmonic valve appears normal. There is mild pulmonic regurgitation. There is no pulmonic stenosis. Pericardium: There is no significant pericardial effusion. A pericardial fat pad is visualized. Aorta: There is no dilatation of the ascending aorta. There is no dilatation of the aortic arch. The aortic root is normal in size. Pulmonary Artery: The main pulmonary artery appears normal. Venous: The inferior vena cava appears normal in size. There is less than 50% respiratory change in the inferior vena cava dimension. Conclusions The study was technically limited due to the patient's inability to lay in the left lateral decubitus position. The patient was sitting upright in bed during the exam. Completed at 1045. The study is technically limited due to patient body habitus. Moderate concentric left ventricular hypertrophy is observed. There is mildly decreased left ventricular systolic function. The estimated ejection fraction is 45-50%. Visually estimated LVEF is 45 %. The left atrium is moderately dilated. There is mild to moderate mitral regurgitation. There is moderate to severe tricuspid regurgitation. There is evidence of moderate pulmonary hypertension. The right atrium is moderately dilated. There is mild pulmonic regurgitation. There is mild aortic regurgitation. Ther patient is noted to be in atrial fibrillation throughout the study. No reports of prior studies are offered for comparison. Measurements Name Value Normal Range RVDdMajor (2D) 3.9 cm (2.2 - 4.4) RAd ISD 4CH 6 cm (3.4 - 4.9) RA (A4C)W 4.6 cm (2.9 - 4.6) IVSd (2D) 1.4 cm (0.6 - 1) LVPWd (2D) 1.4 cm (0.6 - 1) LVIDd (2D) 4.3 cm (3.6 - 5.4) LVIDs (2D) 3.2 cm - LV FS (2D) 26 % (25 - 45) Aortic Annulus 2 cm (1.4 - 2.6) Ao root diameter (2D) 2.7 cm (2.1 - 3.5) Ascending Ao 2.9 cm (2.1 - 3.4) Aortic arch 2.2 cm (1.8 - 3.4) LA dimension (AP) 2D 4.8 cm (2.3 - 3.8) LAd ISD 4CH 6.3 cm (2.9 - 5.3) LA ISD 4CH W 4.5 cm (2.5 - 4.5) Name Value Normal Range LA ESV SP 4CH (A/L) 86 ml - LA ESV SP 2CH (A/L) 77 ml - LA ESV BP (A/L) 83 ml - LA ESV BP (A/L) index 49.9 ml/m2 - LA ESV SP 4CH (MOD) 84 ml - LA ESV SP 2CH (MOD) 73 ml - Name Value Normal Range MV E-wave Vmax 0.93 m/sec - MV deceleration time 185 msec - LV septal e' Vmax 0.07 m/sec - LV lateral e' Vmax 0.1 m/sec - LV E:e' septal ratio 13.3 ratio - LV E:e' lateral ratio 9.3 ratio - Name Value Normal Range AV Vmax 1.5 m/sec - AV VTI 29 cm - AV peak gradient 9.1 mmHg - AV mean gradient 5 mmHg - LVOT Vmax 0.91 m/sec - LVOT VTI 17.6 cm - LVOT peak gradient 3.3 mmHg - LVOT mean gradient 2 mmHg - SAI Vmax 0.43 m/sec - Name Value Normal Range TR Vmax 3.1 m/sec - TR peak gradient 38 mmHg - RAP 8 mmHg - RVSP 46 mmHg - IVC diameter 2.1 cm - Name Value Normal Range PV Vmax 0.71 m/sec -
[2017-01-18] MEDS: SOLIFENACIN 5 MG PO SCH (12:00)
[2017-01-18] MEDS: cefTRIAXone VIAL(*) 1,000 MG in NS 0.9% 50 ML* 50 ML IVPB SCH (15:11)
[2017-01-18 15:52] LABS: Calcium 7.9 mg/dL (8.6-10.3); EGFR African American 165.7 (>60); EGFR Non-African American 128.8 (>60); Potassium 3.9 mmol/L (3.5-5.0)
[2017-01-18] MEDS: Benzocaine/Menthol LOZ* 1 LOZENGE PO PRN (17:16)
[2017-01-18] MEDS: Enoxaparin(*) 80 MG/0.8 ML SYR SUBCUT SCH (17:17)
[2017-01-18 18:48] LABS: BUN/Creatinine Ratio 18.4 (8-20); Blood Urea Nitrogen 9 mg/dL (6-24); CO2 Carbon Dioxide 23 mmol/L (22-32); Calcium 8.1 mg/dL (8.6-10.3); Chloride 86 mmol/L (101-111); EGFR African American 157.9 (>60); EGFR Non-African American 122.8 (>60); Glucose 117 mg/dL (70-100)
[2017-01-18 18:50] LABS: Anion Gap 8 mmol/L (2-11); Sodium 117 mmol/L (133-145)
--- NOTE | 2017-01-18 21:14 | CONS ---
CRITICAL CARE CONSULT: DATE OF CONSULT: 01/18/17 REASON FOR CONSULT: Hyponatremia. HISTORY OF PRESENT ILLNESS: This patient is a 76-year-old female with a 5-year history of chronic lymphocytic leukemia, which has been successfully managed with chemotherapy and now presents to the hospital with a 3- to 4-day history of sore throat, hoarseness, nasal congestion, difficulty breathing, and was subsequently admitted with probable pneumonia (empiric Rx with azithromycin and ceftriaxone). Serum sodium on admission was 114 and this did not correct with saline infusion. Patient has no symptoms related to hyponatremia. PHYSICAL EXAM: On admission to the ICU, the patient was alert and oriented. Vital Signs: Temp 98.2, heart rate 97 and irregularly irregular, Resp rate = 22 , blood pressure 152/80, O2 sat 94% on room air. HEENT: There was bilateral conjunctival injection and exudates at the corner of both eyes. Nasal mucosa was edematous. Oropharynx was clear. Neck was supple. There was no adenopathy. Lungs: There were crackles at the right base posteriorly. No wheezes. Cardiac: Rhythm was irregular and there were no murmurs or gallops. Abdomen was soft, not distended, and not tender. Extremities were warm, not edematous, and not cyanotic. Skin revealed no rashes. There was some bruising on the left side of the trunk (presumably the result of a fall yesterday). DIAGNOSTIC STUDIES/LAB DATA: Admission labs: Sodium 115, potassium 3.8, chloride 85, CO2 20, BUN 8, creatinine 0.44, glucose 163, calcium 8.2. BNP 397. Lactic acid was 1. Chest x-ray showed cardiomegaly with right basilar infiltrate. Electrocardiogram showed atrial fibrillation without acute ST or T wave changes.. IMPRESSION: This patient is a 76-year-old female with a history of chronic lymphocytic leukemia admitted with an atypical/viral pneumonia. The hyponatremia in this setting is most likely the result of inappropriate secretion of antidiuretic hormone, which can be associated with a variety of pneumonias. The other significant finding is atrial fibrillation, which is apparently of recent onset (? from an acute myocarditis). MANAGEMENT PLAN: The hyponatremia is asymptomatic, so 3% saline is usually not needed. However, since the patient will likely not tolerate fluid restriction, we will use a brief period of hypertonic saline to control the hyponatremia. As for the atrial fibrillation, I will order a cardiac ECHO, begin anticoagulation , and obtain a cardiology consult.. I have spoken to Dr. Brock about my findings, and also discussed these findings with the patient and her . CRITICAL CARE TIME: Sixty minutes. [id number]/CPS #: [id number] TORY
[2017-01-19] MEDS: Morphine INJ* 2 MG/ML 1 ML SYRINGE (TWO MG - NEW SYRINGE VERSION) IV PRN (00:15)
[2017-01-19] MEDS: Enoxaparin(*) 80 MG/0.8 ML SYR SUBCUT SCH ×2 (05:25→16:53)
[2017-01-19 07:33] LABS: BUN/Creatinine Ratio 18.4 (8-20); Calcium 8.6 mg/dL (8.6-10.3); EGFR African American 157.9 (>60); EGFR Non-African American 122.8 (>60); Potassium 4.1 mmol/L (3.5-5.0)
[2017-01-19] MEDS: Calcium/Vitamin D TAB 250/125* TAB PO SCH (09:35)
[2017-01-19] MEDS: Aspirin EC Low Dose* 81 MG TAB.EC PO SCH (09:35)
[2017-01-19] MEDS: Famotidine TAB* 20 MG PO SCH ×2 (09:35→21:37)
[2017-01-19] MEDS: Multivitamins/Minerals TAB PO SCH (09:35)
[2017-01-19] MEDS: Benzonatate CAP* 100 MG PO SCH ×3 (09:36→21:36)
[2017-01-19] MEDS: Erythromycin OPTH OINT* APPLIC OINT BOTH EYES SCH ×3 (09:36→21:37)
[2017-01-19] MEDS: SOLIFENACIN 5 MG PO SCH (09:39)
[2017-01-19] MEDS: Azithromycin IV(*) 500 MG in NS 0.9% 250 ML* 250 ML IVPB SCH (10:16)
[2017-01-19] MEDS: cefTRIAXone VIAL(*) 1,000 MG in NS 0.9% 50 ML* 50 ML IVPB SCH (11:20)
[2017-01-19] MEDS: Demeclocycline TAB* 150 MG PO SCH ×2 (14:46→21:37)
[2017-01-19] MEDS: Benzocaine/Menthol LOZ* 1 LOZENGE PO PRN (16:53)
[2017-01-20] MEDS: Morphine INJ* 2 MG/ML 1 ML SYRINGE (TWO MG - NEW SYRINGE VERSION) IV PRN ×2 (02:51→19:03)
[2017-01-20] MEDS: Enoxaparin(*) 80 MG/0.8 ML SYR SUBCUT SCH ×2 (05:34→17:20)
[2017-01-20 06:52] LABS: Calcium 8.3 mg/dL (8.6-10.3); EGFR African American 154.3 (>60); Potassium 3.9 mmol/L (3.5-5.0)
[2017-01-20] MEDS: Azithromycin IV(*) 500 MG in NS 0.9% 250 ML* 250 ML IVPB SCH (09:12)
[2017-01-20] MEDS: Aspirin EC Low Dose* 81 MG TAB.EC PO SCH (09:21)
[2017-01-20] MEDS: Benzonatate CAP* 100 MG PO SCH ×4 (09:21→21:11)
[2017-01-20] MEDS: Calcium/Vitamin D TAB 250/125* TAB PO SCH (09:21)
[2017-01-20] MEDS: Demeclocycline TAB* 150 MG PO SCH ×3 (09:21→21:08)
[2017-01-20] MEDS: Erythromycin OPTH OINT* APPLIC OINT BOTH EYES SCH ×3 (09:21→21:13)
[2017-01-20] MEDS: Famotidine TAB* 20 MG PO SCH ×2 (09:21→21:09)
[2017-01-20] MEDS: Multivitamins/Minerals TAB PO SCH (09:21)
[2017-01-20] MEDS: SOLIFENACIN 5 MG PO SCH (09:22)
--- NOTE | 2017-01-20 10:02 | PN ---
Progress Note - Progress Note Date of Service: 01/20/17 SOAP: Subjective: []She is feeling better today. Eating well. Had VH yesterday in ICU but better today. Reports drinking lots of fluids at home while on Imbruvica. She had several weeks of URI symptoms and SOB, both better now. No fevers. Aspirin (Aspirin Ec Low Dose*) 81 mg PO DAILY [facility] Last Admin: 01/20/17 09:21 Dose: 81 mg Benzonatate (Tessalon Cap*) 100 mg PO TID [facility] Last Admin: 01/20/17 09:21 Dose: 100 mg Calcium/Vitamin D (Oscal D Tab 250/125*) 1 tab PO DAILY [facility] Last Admin: 01/20/17 09:21 Dose: 1 tab Demeclocycline HCl (Declomycin Tab*) 150 mg PO TID [facility] Last Admin: 01/20/17 09:21 Dose: 150 mg Enoxaparin Sodium (Lovenox(*)) 70 mg SUBCUT Q12H [facility] Last Admin: 01/20/17 05:34 Dose: 70 mg Erythromycin (Erythromycin Opth Oint*) 1 applic BOTH EYES TID [facility] Last Admin: 01/20/17 09:21 Dose: 1 applic Famotidine (Pepcid Tab*) 20 mg PO BID [facility] PRN Reason: Protocol Last Admin: 01/20/17 09:21 Dose: 20 mg Guaifenesin/Codeine Phosphate (Robitussin Ac 100mg-10mg*) 5 ml PO Q4H PRN PRN Reason: COUGH Last Admin: 01/18/17 04:12 Dose: 5 ml Azithromycin 500 mg/ Sodium (Chloride) 250 mls @ 250 mls/hr IVPB Q24HR [facility] Last Admin: 01/20/17 09:12 Dose: 250 mls/hr Ceftriaxone Sodium 1,000 mg/ (Sodium Chloride) 50 mls @ 200 mls/hr IVPB Q24H [facility] Last Admin: 01/19/17 11:20 Dose: 200 mls/hr Morphine Sulfate (Morphine Inj (Syringe)*) 2 mg IV Q2H PRN PRN Reason: SOB/ PAIN Last Admin: 01/20/17 02:51 Dose: 2 mg Multivitamins/Minerals (Theragran/Minerals Tab*) 1 tab PO DAILY [facility] Last Admin: 11/23/17 09:21 Dose: 1 tab Solifenacin (Vesicare(Nf)) 5 mg PO DAILY [facility] Last Admin: 01/20/17 09:22 Dose: 5 mg Throat Lozenges (Chloraseptic Cammie*) 1 cammie PO Q6H PRN PRN Reason: SORE THROAT Last Admin: 01/19/17 16:53 Dose: 1 cammie Objective: [] Vital Signs Temp Pulse Resp BP Pulse Ox 97.6 F 94 18 145/75 100 01/20/17 07:37 01/20/17 07:37 01/20/17 08:00 01/20/17 07:37 01/20/17 07:37 HEENT - mucosa moist, no LAD Crackles at bases RRR S2S2 No HSM, non tender +2 edema Labs reviewed and Na of 120, up slightly. No UA Assessment: []76 year old who presented with URI symptoms and acute onset hyponatremia, euvolimic to volume overload with decreased BUN and Cr. Etiology is unclear, pulmonary process is under whelming. Differential includes new onset SIADH from pulmonary disease, TRACK LABORER event, endocrine disorder, she could have a hidden osmol. I do not see association with ibrutinib. Plan: []1. Stable off IVF and on Demeclocycline. Ray start fluid restriction of 2 L per day and follow Na tomorrow. 2. Check FeNA, Urine osmolarity, serum osmolarity, uric acid and will check MRI of brain. 3. Continue antibiotics for time being. 4. Hold therapy for CLL
[2017-01-20] MEDS: cefTRIAXone VIAL(*) 1,000 MG in NS 0.9% 50 ML* 50 ML IVPB SCH (11:26)
[2017-01-20 12:12] LABS: Uric Acid 2.6 mg/dL (2.3-6.6)
[2017-01-20 13:13] LABS: Calcium (PTH Intact) 8.1 mg/dL (8.6-10.3)
[2017-01-20 13:23] LABS: TSH (Thyroid Stimulating Horm) 1.06 mcIU/mL (0.34-5.60)
[2017-01-20] MEDS: Metoprolol Tartrate TAB* 25 MG PO SCH ×2 (14:49→21:09)
--- NOTE | 2017-01-20 16:41 | CONS ---
CC: Dr. Brain Grossman, hand flesher; Dr. Brock * CARDIOLOGY CONSULT: DATE OF CONSULT: 01/20/17 HISTORY OF PRESENT ILLNESS: The patient is a 76-year-old female patient with a 5- year history of CLL (chronic lymphocytic leukemia) and has been successfully treated and presented to the hospital with a few days of upper respiratory tract infection including nasal congestion, difficulty breathing, shortness of breath, and hoarseness and sore throat. She was hospitalized for possible pneumonia and for treatment. She was found to have significantly low sodium on admission of 114. She also was found to be in atrial fibrillation of unknown duration. Cardiology consult was further requested because of that. She is not on rate limiting agent. She had an echocardiogram that showed her to have an EF of 45% to 50%. I do not have any previous echo for comparison, and also she was found to have moderate-to- severe tricuspid insufficiency with moderate pulmonary hypertension, and mild-to- moderate mitral insufficiency and right atrium dilated and left atrium dilated, mild aortic insufficiency, mild pulmonic insufficiency. She gives no history of myocardial infarction, no history of congestive heart failure in the past. No history of smoking, no history of alcoholism, no history of hypertension, no history of diabetes, no history of hyperlipidemia. She had heart rate through the monitor, has been in the upper 90s to lower 100. She does not feel her fibrillation. She gives no fever, no chills, no skin rash, no tremors, no hematochezia, no nausea, no vomiting. No syncope is appreciated. She is a DNR status. MEDICATIONS: As an inpatient include: 1. Aspirin 81 mg daily. 2. Azithromycin 500 mg. 3. She is also on calcium and vitamin D. 4. She is on ceftriaxone 1000 mg. 5. She is on Lovenox 70 mg subcu q. 12 hours. 6. Erythromycin. 7. She is on Pepcid 20 mg twice a day. 8. Multivitamins daily. ALLERGIES: No known drug allergies. SOCIAL HISTORY: She gives no history of smoking, no drinking, no illicit drug use. REVIEW OF SYSTEMS: Review of all other systems essentially is negative. PHYSICAL EXAM: She is out of bed. She is awake, alert, oriented. She is not in acute distress. Vitals: Blood pressure 145/75, pulse is 95, she is in irregular irregular. Temperature 97.6. Head and Neck Exam: Normocephalic, atraumatic head. Ears, Nose, and Throat: Essentially benign. Neck: Supple. JVP is not elevated. No carotid bruits. Chest: Diminished air entry at the bases with some rhonchi. Heart: Irregularly irregular. S1, S2. No added sounds. No gallops and no rubs. Abdomen: Benign. Positive bowel sounds. Extremities: No significant edema, no cyanosis, no clubbing. Skin exam is normal. Psych: Normal affect and mood. 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 DIAGNOSTIC STUDIES/LAB DATA: Her labs showed the following: White blood cells 13.5, hemoglobin 10.7, hematocrit 32, and platelets 296. Sodium is correcting to 120 today, potassium is 3.9, chloride 88, BUN 10, creatinine 0.50. Her EKG showed the patient to be in atrial fibrillation, that was done on the with a heart rate of 95 beats per minute, left axis deviation, and borderline low voltage and nonspecific T-abnormality. IMPRESSION: The patient is a 76-year-old female patient with: 1. Presentation with upper respiratory tract symptoms, possible pneumonia and concerns for significantly low hyponatremia. 2. Atrial fibrillation, incidental finding of unknown duration. The patient is asymptomatic. 3. Cardiomyopathy with EF 45% to 50% of unknown duration. She is not overtly in congestive heart failure. 4. Mixed valvular disease. As described in the full report 01/18/17 with biatrial enlargement. 5. [id number] mitral insufficiency. 6. Knqsuzez-[id number] tricuspid insufficiency. 7. Moderate pulmonary hypertension. 8. Mild pulmonic insufficiency. 9. Mild aortic insufficiency. 10. History of chronic lymphocytic leukemia and successfully treated for 5 years diagnosed ago. 11. Patient gives no history of whatsoever diabetes mellitus, hypertension, hyperlipidemia, coronary artery disease or congestive heart failure in the past. 12. Patient is DNR. PLAN: The patient is currently in telemetry floor. Her sodium level is improving gradually and slowly. She feels overall okay. Her atrial fibrillation is relatively controlled although the heart rate is upper limit and upper 90s and lower 100, but of unknown duration could be related to her acute illness and significantly low sodium. Very important to correct her sodium and keep a very close eye on her electrolytes, especially potassium and magnesium. Given her cardiomyopathy and borderline tachycardia, her atrial fibrillation, I do recommend a very low dose beta nanette treatment which I started at 12.5 mg twice a day. She is to stay hydrated. She is to follow up with Oncology as already doing and continue antibiotic treatment for now as already doing. Sometime, when she is recovering from her acute illness, it might be worth repeating her echocardiogram in a few weeks for followup on her left ventricular systolic function. I discussed at length this with the patient and her family who were available at bedside. TIME SPENT: More than half of at least 60 plus minutes were spent on education and counseling with face to face explaining the above and answering all of the above. [id number]/CPS #: [id number] TORY
[2017-01-21] MEDS: Enoxaparin(*) 80 MG/0.8 ML SYR SUBCUT SCH ×2 (05:01→18:04)
[2017-01-21 06:30] LABS: Hematocrit 29 % (35-47); Hemoglobin 9.7 g/dl (12.0-16.0); Mean Corpuscular HGB Conc 33 g/dl (31-36); Mean Corpuscular Hemoglobin 27 pg (27-31); Mean Corpuscular Volume 81 fL (80-97); Mean Platelet Volume 8 um3 (7.4-10.4); Red Blood Count 3.64 10^6/ul (4.0-5.4); Red Cell Distribution Width 14 % (10.5-15); White Blood Count 12.9 10^3/ul (3.5-10.8)
[2017-01-21 06:41] LABS: BUN/Creatinine Ratio 18.6 (8-20); Calcium 7.6 mg/dL (8.6-10.3); EGFR African American 183.6 (>60); EGFR Non-African American 142.8 (>60); Potassium 3.7 mmol/L (3.5-5.0)
[2017-01-21] MEDS: Azithromycin IV(*) 500 MG in NS 0.9% 250 ML* 250 ML IVPB SCH (09:47)
[2017-01-21] MEDS: Calcium/Vitamin D TAB 250/125* TAB PO SCH (09:48)
[2017-01-21] MEDS: Demeclocycline TAB* 150 MG PO SCH ×3 (09:48→19:59)
[2017-01-21] MEDS: Benzonatate CAP* 100 MG PO SCH ×3 (09:48→19:59)
[2017-01-21] MEDS: Benzocaine/Menthol LOZ* 1 LOZENGE PO PRN (09:48)
[2017-01-21] MEDS: Metoprolol Tartrate TAB* 25 MG PO SCH ×2 (09:50→19:59)
[2017-01-21] MEDS: Aspirin EC Low Dose* 81 MG TAB.EC PO SCH (09:50)
[2017-01-21] MEDS: Multivitamins/Minerals TAB PO SCH (09:50)
[2017-01-21] MEDS: SOLIFENACIN 5 MG PO SCH (09:51)
[2017-01-21] MEDS: Erythromycin OPTH OINT* APPLIC OINT BOTH EYES SCH ×3 (09:51→19:59)
[2017-01-21] MEDS: Famotidine TAB* 20 MG PO SCH ×2 (09:51→19:59)
--- NOTE | 2017-01-21 09:59 | PN ---
Progress Note - Progress Note Date of Service: 01/21/17 SOAP: Subjective: []No change today. Had some diarrhea yesterday. No fevers. Still some SOB and sinus pain. Aspirin (Aspirin Ec Low Dose*) 81 mg PO DAILY [facility] Last Admin: 01/20/17 09:21 Dose: 81 mg Benzonatate (Tessalon Cap*) 100 mg PO TID [facility] Last Admin: 01/21/17 09:48 Dose: 100 mg Calcium/Vitamin D (Oscal D Tab 250/125*) 1 tab PO DAILY [facility] Last Admin: 01/21/17 09:48 Dose: 1 tab Demeclocycline HCl (Declomycin Tab*) 150 mg PO TID [facility] Stop: 01/21/17 14:00 Last Admin: 01/21/17 09:48 Dose: 150 mg Demeclocycline HCl (Declomycin Tab*) 300 mg PO BID [facility] Enoxaparin Sodium (Lovenox(*)) 70 mg SUBCUT Q12H [facility] Last Admin: 01/21/17 05:01 Dose: 70 mg Erythromycin (Erythromycin Opth Oint*) 1 applic BOTH EYES TID [facility] Last Admin: 01/20/17 21:13 Dose: 1 applic Famotidine (Pepcid Tab*) 20 mg PO BID [facility] PRN Reason: Protocol Last Admin: 01/20/17 21:09 Dose: 20 mg Guaifenesin/Codeine Phosphate (Robitussin Ac 100mg-10mg*) 5 ml PO Q4H PRN PRN Reason: COUGH Last Admin: 01/18/17 04:12 Dose: 5 ml Azithromycin 500 mg/ Sodium (Chloride) 250 mls @ 250 mls/hr IVPB Q24HR [facility] Last Admin: 01/21/17 09:47 Dose: 250 mls/hr Ceftriaxone Sodium 1,000 mg/ (Sodium Chloride) 50 mls @ 200 mls/hr IVPB Q24H [facility] Last Admin: 01/20/17 11:26 Dose: 200 mls/hr Metoprolol Tartrate (Lopressor Tab*) 12.5 mg PO BID [facility] Last Admin: 01/20/17 21:09 Dose: 12.5 mg Morphine Sulfate (Morphine Inj (Syringe)*) 2 mg IV Q2H PRN PRN Reason: SOB/ PAIN Last Admin: 01/20/17 19:03 Dose: 2 mg Multivitamins/Minerals (Theragran/Minerals Tab*) 1 tab PO DAILY [facility] Last Admin: 01/20/17 09:21 Dose: 1 tab Solifenacin (Vesicare(Nf)) 5 mg PO DAILY [facility] Last Admin: 01/20/17 09:22 Dose: 5 mg Throat Lozenges (Chloraseptic Cammie*) 1 cammie PO Q6H PRN PRN Reason: SORE THROAT Last Admin: 01/21/17 09:48 Dose: 1 cammie Objective: [] Vital Signs Temp Pulse Resp BP Pulse Ox 99.1 F 91 20 142/67 95 01/21/17 07:23 01/21/17 07:23 01/21/17 07:23 01/21/17 07:23 01/21/17 07:23 HEENT - mucosa dry, no LAD Crackles at bases RRR S2S2 No HSM, non tender +2 edema multiple cups of water and juice at bedside. Labs reviewed and Na of 119 No UA PTH and TSH nml FeNa 0.1% Assessment: []76 year old who presented with URI symptoms and acute onset hyponatremia, euvolimic to volume overload with decreased BUN and Cr. Etiology is unclear, pulmonary process is underwhelming. Differential includes new onset SIADH from pulmonary disease, CUSTOMER SERVICE DRIVER event, she could have a hidden osmol. Her TSH and PTH were checked, she has low sodim excretion in urine, urino osm pending. I do not see association with ibrutinib. Plan: []1. Stable off IVF and on Demeclocycline. - Increase demeclocycline to 300 mg bid - Fluid restriction to 1.5 L - Drink only when thursty. 2. Further work up pending: - Urine osmolarity, serum osmolarity - MRI of brain. - 24 hr urine. - If not improved Tuesday, may consult endocrinology. 3. Continue antibiotics for time being. 4. Hold therapy for CLL
[2017-01-21] MEDS ORDERED: Gadoteridol* (CONTRAST) 279.3 MG/ML 10 ML IV ONE (11:25)
--- NOTE | 2017-01-21 12:27 | RAD ---
HISTORY: Hyponatremia, leukemia COMPARISONS: None TECHNIQUE: The following sequences were obtained of the head: Sagittal T1-weighted images, axial T2-weighted images, axial FLAIR images, axial susceptibility weighted images, axial T1-weighted images. Additionally, axial diffusion-weighted images were obtained with calculated apparent diffusion coefficients. Additionally, sagittal, coronal, and axial T1-weighted images were obtained after contrast enhancement with a gadolinium-based intravenous contrast agent. FINDINGS: HEMORRHAGE/INFARCT: There is no hemorrhage or acute infarct. MASSES/SHIFT: There is no mass or shift. EXTRA-AXIAL SPACES/MENINGES: There are no extra-axial fluid collections. SULCI AND VENTRICLES: The sulci and ventricles are normal in size and position for the patient's stated age. CEREBRUM: There are multiple scattered small foci of elevated T2/FLAIR signal within the periventricular and subcortical white matter. There is no associated abnormal enhancement. BRAINSTEM: There are no focal parenchymal abnormalities. CEREBELLUM: There are no focal parenchymal abnormalities. The cerebellar tonsils are normal in size and position. SELLA: The sella is normal. PINEAL: The pineal region is clear. CP ANGLE/TEMPORAL BONES: The labyrinthine structures are grossly normal. VESSELS: Normal flow-voids are noted within the visualized vertebral vasculature. DIFFUSION ABNORMALITIES: There are no diffusion abnormalities. PARANASAL SINUSES/MASTOIDS: There is mucosal thickening of the sphenoid sinus with an air-fluid level seen with sinus. There are bilateral mastoid effusions. ORBITS: The orbits are unremarkable. BONES AND SOFT TISSUE: No bone or soft tissue abnormalities are noted. OTHER: There is no abnormal enhancement. IMPRESSION: 1. THERE ARE MULTIPLE SCATTERED, SMALL, NONENHANCING FOCI OF ELEVATED T2/FLAIR SIGNAL WITHIN THE PERIVENTRICULAR AND SUBCORTICAL WHITE MATTER. WHILE THESE FINDINGS ARE NONSPECIFIC, THEY CAN BE SEEN IN ASSOCIATION WITH MIGRAINE HEADACHE, THE SEQUELA OF PREVIOUS INFECTION OR INFLAMMATION, AND CHRONIC SMALL VESSEL ISCHEMIA. DEMYELINATING DISEASE IS ALSO WITHIN THE DIFFERENTIAL, BUT IS CONSIDERED LESS LIKELY IN THE ABSENCE OF THE APPROPRIATE CLINICAL PRESENTATION. 2. MILD SINUS MUCOSAL INFLAMMATORY DISEASE, WITH AN AIR-FLUID LEVEL IN THE SPHENOID SINUS. IN THE CORRECT CLINICAL SETTING, THIS MAY REPRESENT ACUTE SINUSITIS. 3. BILATERAL MASTOID EFFUSIONS.
[2017-01-21] MEDS: cefTRIAXone VIAL(*) 1,000 MG in NS 0.9% 50 ML* 50 ML IVPB SCH (12:28)
[2017-01-22] MEDS: Enoxaparin(*) 80 MG/0.8 ML SYR SUBCUT SCH ×2 (05:19→16:47)
[2017-01-22 05:59] LABS: Add Diff/Slide Review? Slide Review Added; Comments Flag Yes; Hematocrit 29 % (35-47); Hemoglobin 9.8 g/dl (12.0-16.0); Mean Corpuscular HGB Conc 34 g/dl (31-36); Mean Corpuscular Hemoglobin 27 pg (27-31); Mean Corpuscular Volume 81 fL (80-97); Mean Platelet Volume 8 um3 (7.4-10.4); Red Blood Count 3.64 10^6/ul (4.0-5.4); Red Cell Distribution Width 15 % (10.5-15); White Blood Count 14.9 10^3/ul (3.5-10.8)
[2017-01-22 06:26] LABS: Albumin 2.7 g/dL (3.2-5.2); BUN/Creatinine Ratio 15.1 (8-20); EGFR African American 144.2 (>60); EGFR Non-African American 112.2 (>60); Globulin 2.2 g/dL (2-4); Magnesium 1.9 mg/dL (1.9-2.7); Potassium 3.7 mmol/L (3.5-5.0); Total Bilirubin 0.5 mg/dL (0.2-1.0); Total Protein 4.9 g/dL (6.4-8.9)
[2017-01-22] MEDS ORDERED: NS 0.9% 250 ML* 500 ML ONE (07:45)
[2017-01-22] MEDS: Azithromycin IV(*) 500 MG in NS 0.9% 250 ML* 250 ML IVPB SCH (07:55)
[2017-01-22] MEDS: SOLIFENACIN 5 MG PO SCH (08:06)
[2017-01-22] MEDS: Erythromycin OPTH OINT* APPLIC OINT BOTH EYES SCH ×3 (08:06→20:12)
[2017-01-22] MEDS: Calcium/Vitamin D TAB 250/125* TAB PO SCH (08:07)
[2017-01-22] MEDS: Multivitamins/Minerals TAB PO SCH (08:07)
[2017-01-22] MEDS: Famotidine TAB* 20 MG PO SCH ×2 (08:07→20:05)
[2017-01-22] MEDS: Benzonatate CAP* 100 MG PO SCH ×3 (08:07→20:04)
[2017-01-22] MEDS: Aspirin EC Low Dose* 81 MG TAB.EC PO SCH (08:07)
[2017-01-22] MEDS: Metoprolol Tartrate TAB* 25 MG PO SCH ×2 (08:07→20:06)
[2017-01-22] MEDS: Demeclocycline TAB* 150 MG PO SCH ×2 (08:13→20:04)
--- NOTE | 2017-01-22 10:44 | PN ---
Progress Note - Progress Note Date of Service: 01/22/17 SOAP: Subjective: []Feels better today. Tolerated fluid restriction. Sinus pain is better and breathing well. Has had diarrhea, just a little bit, every day. No abdominal pain. Aspirin (Aspirin Ec Low Dose*) 81 mg PO DAILY [facility] Last Admin: 01/22/17 08:07 Dose: 81 mg Benzonatate (Tessalon Cap*) 100 mg PO TID [facility] Last Admin: 01/22/17 08:07 Dose: 100 mg Calcium/Vitamin D (Oscal D Tab 250/125*) 1 tab PO DAILY [facility] Last Admin: 01/22/17 08:07 Dose: 1 tab Demeclocycline HCl (Declomycin Tab*) 300 mg PO BID [facility] Last Admin: 01/22/17 08:13 Dose: 300 mg Enoxaparin Sodium (Lovenox(*)) 70 mg SUBCUT Q12H [facility] Last Admin: 01/22/17 05:19 Dose: 70 mg Erythromycin (Erythromycin Opth Oint*) 1 applic BOTH EYES TID [facility] Last Admin: 01/22/17 08:06 Dose: 1 applic Famotidine (Pepcid Tab*) 20 mg PO BID [facility] PRN Reason: Protocol Last Admin: 01/22/17 08:07 Dose: 20 mg Guaifenesin/Codeine Phosphate (Robitussin Ac 100mg-10mg*) 5 ml PO Q4H PRN PRN Reason: COUGH Last Admin: 01/18/17 04:12 Dose: 5 ml Azithromycin 500 mg/ Sodium (Chloride) 250 mls @ 250 mls/hr IVPB Q24HR [facility] Last Admin: 01/22/17 07:55 Dose: 250 mls/hr Ceftriaxone Sodium 1,000 mg/ (Sodium Chloride) 50 mls @ 200 mls/hr IVPB Q24H [facility] Last Admin: 01/21/17 12:28 Dose: 200 mls/hr Metoprolol Tartrate (Lopressor Tab*) 12.5 mg PO BID [facility] Last Admin: 01/22/17 08:07 Dose: 12.5 mg Morphine Sulfate (Morphine Inj (Syringe)*) 2 mg IV Q2H PRN PRN Reason: SOB/ PAIN Last Admin: 01/20/17 19:03 Dose: 2 mg Multivitamins/Minerals (Theragran/Minerals Tab*) 1 tab PO DAILY [facility] Last Admin: 01/22/17 08:07 Dose: 1 tab Solifenacin (Vesicare(Nf)) 5 mg PO DAILY [facility] Last Admin: 01/22/17 08:06 Dose: 5 mg Throat Lozenges (Chloraseptic Cammie*) 1 cammie PO Q6H PRN PRN Reason: SORE THROAT Last Admin: 01/21/17 09:48 Dose: 1 cammie Objective: Vital Signs Temp Pulse Resp BP Pulse Ox 98.8 F 117 20 142/75 97 01/22/17 03:18 01/22/17 03:18 01/22/17 03:18 01/22/17 03:18 01/22/17 03:18 HEENT - mucosa dry, no LAD Crackles at bases RRR S2S2 No HSM, non tender +2 edema Labs reviewed and Na of 122 MRI - sinus disease, 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 Assessment: []76 year old who presented with URI symptoms and acute onset hyponatremia, euvolimic to volume overload with decreased BUN and Cr. Etiology is unclear, pulmonary process is underwhelming. Differential includes new onset SIADH from pulmonary disease as most likely, MRI brain negative, she could have a hidden osmol. Her TSH and PTH were checked, she has low sodim excretion in urine. I do not see association with ibrutinib. Plan: []1. Stable off IVF and on Demeclocycline. - Continue demeclocycline to 300 mg bid - Fluid restriction to 1.5 L - Drink only when thirsty. 2. No further work up hyponatremia. 3. Sinus pain improved. Stop IV anitbiotics and finish course with Augmentin. She is day 6 of antibiotics, will plan 10 day course. 4. Hold therapy for CLL
[2017-01-22] MEDS: Amoxicillin/Clavulanate TAB* 875 MG PO SCH (20:03)
[2017-01-22 22:16] LABS: Urine Bilirubin Negative (Negative); Urine Glucose Negative (Negative); Urine Nitrite Negative (Negative)
[2017-01-23] MEDS: Enoxaparin(*) 80 MG/0.8 ML SYR SUBCUT SCH ×2 (05:24→17:10)
[2017-01-23 06:19] LABS: Hematocrit 29 % (35-47); Hemoglobin 9.4 g/dl (12.0-16.0); Mean Corpuscular HGB Conc 33 g/dl (31-36); Mean Corpuscular Hemoglobin 27 pg (27-31); Mean Corpuscular Volume 82 fL (80-97); Mean Platelet Volume 7 um3 (7.4-10.4); Red Blood Count 3.53 10^6/ul (4.0-5.4); Red Cell Distribution Width 14 % (10.5-15); White Blood Count 13.5 10^3/ul (3.5-10.8)
[2017-01-23 06:27] LABS: Albumin 2.6 g/dL (3.2-5.2); BUN/Creatinine Ratio 19.2 (8-20); Calcium 7.9 mg/dL (8.6-10.3); EGFR African American 147.4 (>60); EGFR Non-African American 114.6 (>60); Globulin 2.1 g/dL (2-4); Magnesium 1.8 mg/dL (1.9-2.7); Potassium 3.7 mmol/L (3.5-5.0); Total Bilirubin 0.5 mg/dL (0.2-1.0); Total Protein 4.7 g/dL (6.4-8.9)
[2017-01-23 06:28] LABS: Comments Flag Yes
[2017-01-23] MEDS: Amoxicillin/Clavulanate TAB* 875 MG PO SCH ×2 (09:48→22:09)
[2017-01-23] MEDS: Benzonatate CAP* 100 MG PO SCH ×3 (09:49→22:09)
[2017-01-23] MEDS: Multivitamins/Minerals TAB PO SCH (09:49)
[2017-01-23] MEDS: Famotidine TAB* 20 MG PO SCH ×2 (09:49→22:09)
[2017-01-23] MEDS: Demeclocycline TAB* 150 MG PO SCH ×2 (09:49→22:09)
[2017-01-23] MEDS: Aspirin EC Low Dose* 81 MG TAB.EC PO SCH (09:49)
[2017-01-23] MEDS: Calcium/Vitamin D TAB 250/125* TAB PO SCH (09:49)
[2017-01-23] MEDS: Metoprolol Tartrate TAB* 25 MG PO SCH (09:50)
[2017-01-23] MEDS: SOLIFENACIN 5 MG PO SCH (09:51)
[2017-01-23] MEDS: Erythromycin OPTH OINT* APPLIC OINT BOTH EYES SCH ×3 (09:52→22:18)
--- NOTE | 2017-01-23 11:53 | PN ---
Subjective Date of Service: 01/23/17 Interval History: This is a 76 yo female with CLL admitted with a possible viral PNA/sinusitis and profound hyponatremia. She had transient atrial fibrillation. 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 Today, patient reports that she is feeling progressively better. Strength and energy improving. No cough, SOB, abd pain, n/v. Objective Active Medications: Amoxicillin/Clavulanate Potassium (Augmentin Tab*) 875 mg PO BID [facility] Last Admin: 01/23/17 09:48 Dose: 875 mg Aspirin (Aspirin Ec Low Dose*) 81 mg PO DAILY [facility] Last Admin: 01/23/17 09:49 Dose: 81 mg Benzonatate (Tessalon Cap*) 100 mg PO TID [facility] Last Admin: 01/23/17 09:49 Dose: 100 mg Calcium/Vitamin D (Oscal D Tab 250/125*) 1 tab PO DAILY [facility] Last Admin: 01/23/17 09:49 Dose: 1 tab Demeclocycline HCl (Declomycin Tab*) 300 mg PO BID [facility] Last Admin: 01/23/17 09:49 Dose: 300 mg Enoxaparin Sodium (Lovenox(*)) 70 mg SUBCUT Q12H [facility] Last Admin: 01/23/17 05:24 Dose: 70 mg Erythromycin (Erythromycin Opth Oint*) 1 applic BOTH EYES TID [facility] Last Admin: 01/23/17 09:52 Dose: 1 applic Famotidine (Pepcid Tab*) 20 mg PO BID [facility] PRN Reason: Protocol Last Admin: 01/23/17 09:49 Dose: 20 mg Guaifenesin/Codeine Phosphate (Robitussin Ac 100mg-10mg*) 5 ml PO Q4H PRN PRN Reason: COUGH Last Admin: 01/18/17 04:12 Dose: 5 ml Metoprolol Tartrate (Lopressor Tab*) 12.5 mg PO BID [facility] Last Admin: 01/23/17 09:50 Dose: 12.5 mg Morphine Sulfate (Morphine Inj (Syringe)*) 2 mg IV Q2H PRN PRN Reason: SOB/ PAIN Last Admin: 01/20/17 19:03 Dose: 2 mg Multivitamins/Minerals (Theragran/Minerals Tab*) 1 tab PO DAILY [facility] Last Admin: 01/23/17 09:49 Dose: 1 tab Solifenacin (Vesicare(Nf)) 5 mg PO DAILY [facility] Last Admin: 01/23/17 09:51 Dose: 5 mg Throat Lozenges (Chloraseptic Cammie*) 1 cammie PO Q6H PRN PRN Reason: SORE THROAT Last Admin: 01/21/17 09:48 Dose: 1 cammie Vital Signs: Temp Pulse Resp BP Pulse Ox 98.1 F 95 16 117/59 97 01/23/17 07:43 01/23/17 07:43 01/23/17 08:00 01/23/17 07:43 01/23/17 07:43 Oxygen Devices in Use Now: Nasal Cannula Appearance: Relatively well appearing 76 yo female in NAD. She is sitting up in a chair accompanied by her . Respiratory: Symmetrical Chest Expansion and Respiratory Effort, Clear to Auscultation Cardiovascular: NL Sounds; No Murmurs; No JVD, RRR Abdominal: NL Sounds; No Tenderness; No Distention Extremities: - - non-pitting LE edema Skin: No Rash or Ulcers Neurological: Alert and Oriented x 3 Result Diagrams: 01/23/17 05:43 01/23/17 05:43 Assess/Plan/Problems-Billing Assessment: This is a 76 yo female with CLL admitted with a viral PNA/sinusitis and profound hyponatremia with a brief episode of atrial fibrillation. - Patient Problems (1) Hyponatremia Comment: Likely due to SIADH Uncertain etiology Improving with fluid restriction and demeclocycline (2) Sinusitis Comment: Improving with Augmentin (3) Viral pneumonia Comment: Improving Cont supportive care measures (4) Atrial fibrillation Comment: Transient Perhaps due to acute illness Started on BB Anticoagulated on FD Lovenox (5) CLL (chronic lymphocytic leukemia) Comment: Therapy held at this time (6) DNR (do not resuscitate) (7) DVT prophylaxis Comment: Lovenox Status and Disposition: Inpatient. Anticipate dc in 1-2 d
[2017-01-23] MEDS ORDERED: Metoprolol Tartrate TAB* 25 MG PO SCH (21:00)
[2017-01-24] MEDS: Benzocaine/Menthol LOZ* 1 LOZENGE PO PRN ×4 (00:56→21:33)
[2017-01-24] MEDS: guaiFENesin/CODIEN 100MG-10MG* 5 ML UDC PO PRN (02:56)
[2017-01-24] MEDS ORDERED: Metoprolol Tartrate IV* 1 MG/ML 5 ML VIAL IV STA (03:14)
[2017-01-24] MEDS ORDERED: Metoprolol Tartrate IV* 1 MG/ML 5 ML VIAL IV PRN (03:15)
[2017-01-24] MEDS: Enoxaparin(*) 80 MG/0.8 ML SYR SUBCUT SCH ×2 (06:38→17:21)
[2017-01-24] MEDS: Amoxicillin/Clavulanate TAB* 875 MG PO SCH ×2 (07:59→21:33)
[2017-01-24] MEDS: Aspirin EC Low Dose* 81 MG TAB.EC PO SCH (07:59)
[2017-01-24] MEDS: Benzonatate CAP* 100 MG PO SCH ×3 (07:59→21:34)
[2017-01-24] MEDS: Multivitamins/Minerals TAB PO SCH (07:59)
[2017-01-24] MEDS: Calcium/Vitamin D TAB 250/125* TAB PO SCH (07:59)
[2017-01-24] MEDS: Famotidine TAB* 20 MG PO SCH ×2 (07:59→21:34)
[2017-01-24] MEDS: Demeclocycline TAB* 150 MG PO SCH ×2 (07:59→21:34)
[2017-01-24] MEDS: SOLIFENACIN 5 MG PO SCH (07:59)
[2017-01-24] MEDS: Erythromycin OPTH OINT* APPLIC OINT BOTH EYES SCH ×3 (08:05→21:34)
[2017-01-24] MEDS ORDERED: Metoprolol Tartrate TAB* 25 MG PO SCH (09:00)
[2017-01-24 09:11] LABS: Comments Flag Yes; Hematocrit 30 % (35-47); Hemoglobin 9.9 g/dl (12.0-16.0); Mean Corpuscular HGB Conc 33 g/dl (31-36); Mean Corpuscular Hemoglobin 27 pg (27-31); Mean Corpuscular Volume 81 fL (80-97); Mean Platelet Volume 7 um3 (7.4-10.4); Red Blood Count 3.66 10^6/ul (4.0-5.4); Red Cell Distribution Width 15 % (10.5-15); White Blood Count 15.1 10^3/ul (3.5-10.8)
[2017-01-24 09:23] LABS: Albumin 2.8 g/dL (3.2-5.2); BUN/Creatinine Ratio 14.1 (8-20); Calcium 8.4 mg/dL (8.6-10.3); EGFR Non-African American 90.2 (>60); Globulin 2.2 g/dL (2-4); Potassium 3.8 mmol/L (3.5-5.0); Total Bilirubin 0.5 mg/dL (0.2-1.0)
[2017-01-24 10:45] LABS: Magnesium 1.9 mg/dL (1.9-2.7)
--- NOTE | 2017-01-24 16:46 | PN ---
Progress Note - Progress Note Date of Service: 01/24/17 SOAP: Subjective: []Seen this AM @ approx. 11 AM. Pt. resting comfortably in bed, states she feels much better than on admission and is excited to go home soon. Very dry mouth and wants to drink more fluids. Still has some congestion and a hoarse voice. Has been able to get OOB and will use commode. No 24hr urine collected d/t frequent diarrhea which started prior to admission and is not watery or smelly. Concerned about being off Imbrutinib. Recurrent episode of A.Fib with RVR overnight requiring additional 10 mg IV push metropolol. Pt. asymptomatic. Medications: Amoxicillin/Clavulanate Potassium (Augmentin Tab*) 875 mg PO BID [facility] Last Admin: 01/24/17 07:59 Dose: 875 mg Aspirin (Aspirin Ec Low Dose*) 81 mg PO DAILY [facility] Last Admin: 01/24/17 07:59 Dose: 81 mg Benzonatate (Tessalon Cap*) 100 mg PO TID [facility] Last Admin: 01/24/17 13:46 Dose: 100 mg Calcium/Vitamin D (Oscal D Tab 250/125*) 1 tab PO DAILY [facility] Last Admin: 01/24/17 07:59 Dose: 1 tab Demeclocycline HCl (Declomycin Tab*) 300 mg PO BID [facility] Last Admin: 01/24/17 07:59 Dose: 300 mg Enoxaparin Sodium (Lovenox(*)) 70 mg SUBCUT Q12H [facility] Last Admin: 01/24/17 06:38 Dose: 70 mg Erythromycin (Erythromycin Opth Oint*) 1 applic BOTH EYES TID [facility] Last Admin: 01/24/17 13:46 Dose: 1 applic Famotidine (Pepcid Tab*) 20 mg PO BID [facility] PRN Reason: Protocol Last Admin: 01/24/17 07:59 Dose: 20 mg Guaifenesin/Codeine Phosphate (Robitussin Ac 100mg-10mg*) 5 ml PO Q4H PRN PRN Reason: COUGH Last Admin: 01/24/17 02:56 Dose: 5 ml Metoprolol Tartrate (Lopressor Iv*) 5 mg IV ONCE PRN PRN Reason: IF HR ABOVE 140 AFTER 1 DOSE Metoprolol Tartrate (Lopressor Tab*) 25 mg PO BID [facility] Morphine Sulfate (Morphine Inj (Syringe)*) 2 mg IV Q2H PRN PRN Reason: SOB/ PAIN Last Admin: 01/20/17 19:03 Dose: 2 mg Multivitamins/Minerals (Theragran/Minerals Tab*) 1 tab PO DAILY [facility] Last Admin: 01/24/17 07:59 Dose: 1 tab Solifenacin (Vesicare(Nf)) 5 mg PO DAILY [facility] Last Admin: 01/24/17 07:59 Dose: 5 mg Throat Lozenges (Chloraseptic Cammie*) 1 cammie PO Q4H PRN PRN Reason: SORE THROAT Last Admin: 01/24/17 13:46 Dose: 1 cammie Objective: [] Vital Signs Temp Pulse Resp BP Pulse Ox 98 F 101 20 121/57 98 01/24/17 15:59 01/24/17 15:59 01/24/17 15:59 01/24/17 15:59 01/24/17 15:59 A&Ox3, EOMI, neuro grossly non-focal HRI, S1S2, tele A.Fib rate avg. 100bpm LS clear bilat., dry cough occ. Hoarse voice with very dry oral mucosa +BS, abd. soft and non-tender throughout without hepatoslenomegaly or rebound tenderness +PP=bilat., no edema Laboratory Results - last 24 hr 01/24/17 01/24/17 01/24/17 03:18 08:55 08:55 WBC 15.1 H RBC 3.66 L Hgb 9.9 L Hct 30 L MCV 81 MCH 27 MCHC 33 RDW 15 Plt Count 436 MPV 7 L Neut % (Auto) 77.6 Lymph % (Auto) 10.3 L [place] % (Auto) 10.4 H Eos % (Auto) 0.9 Baso % (Auto) 0.8 Absolute Neuts (auto) 11.8 H Absolute Lymphs (auto) 1.6 Absolute Monos (auto) 1.6 H Absolute Eos (auto) 0.1 Absolute Basos (auto) 0.1 Absolute Nucleated RBC 0.01 Nucleated RBC % 0 Sodium 131 L Potassium 3.8 Chloride 93 L Carbon Dioxide 33 H Anion Gap 5 BUN 9 Creatinine 0.64 Est GFR ( Amer) 116.0 Est GFR (Non-Af Amer) 90.2 BUN/Creatinine Ratio 14.1 Glucose 126 H Calcium 8.4 L Magnesium 1.9 Total Bilirubin 0.50 AST 20 ALT 15 Alkaline Phosphatase 80 Troponin I 0.04 H* Total Protein 5.0 L Albumin 2.8 L Globulin 2.2 Albumin/Globulin Ratio 1.3 Assessment: []76 yo female with recently diagnosed CLL now admitted with severe hyponatremia appearing to be SIADH of unclear origin, slowly resolving with fluid restriction. Course somewhat complicated by A.Fib with RVR. Plan: []1. A.Fib: increase metoprolol to 25 mg PO BID, appreciate cardiology input. Will need outpatient f/u and echo in approx. 1 mo. 2. Cont. fluid restriction, cont. demecloycine 3. Complete 24 hr urine if possible 4. Repeat labs tomorrow AM and if stable can d/c with short f/u in Onc office
[2017-01-24] MEDS: Metoprolol Tartrate TAB* 25 MG PO SCH (21:34)
[2017-01-25] MEDS: Enoxaparin(*) 80 MG/0.8 ML SYR SUBCUT SCH (05:15)
[2017-01-25] MEDS: Benzocaine/Menthol LOZ* 1 LOZENGE PO PRN (05:27)
[2017-01-25 06:16] LABS: Hematocrit 28 % (35-47); Hemoglobin 9.2 g/dl (12.0-16.0); Mean Corpuscular HGB Conc 33 g/dl (31-36); Mean Corpuscular Hemoglobin 27 pg (27-31); Mean Corpuscular Volume 82 fL (80-97); Mean Platelet Volume 7 um3 (7.4-10.4); Red Blood Count 3.39 10^6/ul (4.0-5.4); Red Cell Distribution Width 15 % (10.5-15); White Blood Count 13.1 10^3/ul (3.5-10.8)
[2017-01-25 06:40] LABS: BUN/Creatinine Ratio 24.1 (8-20); Calcium 8.1 mg/dL (8.6-10.3); EGFR Non-African American 101.1 (>60)
[2017-01-25] MEDS: Benzonatate CAP* 100 MG PO SCH ×2 (08:23→14:42)
[2017-01-25] MEDS: Metoprolol Tartrate TAB* 25 MG PO SCH (08:23)
[2017-01-25] MEDS: Amoxicillin/Clavulanate TAB* 875 MG PO SCH (08:23)
[2017-01-25] MEDS: Aspirin EC Low Dose* 81 MG TAB.EC PO SCH (08:24)
[2017-01-25] MEDS: Demeclocycline TAB* 150 MG PO SCH (08:24)
[2017-01-25] MEDS: Famotidine TAB* 20 MG PO SCH (08:24)
[2017-01-25] MEDS: Calcium/Vitamin D TAB 250/125* TAB PO SCH (08:24)
[2017-01-25] MEDS: Erythromycin OPTH OINT* APPLIC OINT BOTH EYES SCH ×2 (08:24→14:42)
[2017-01-25] MEDS: guaiFENesin/CODIEN 100MG-10MG* 5 ML UDC PO PRN (08:24)
[2017-01-25] MEDS: Multivitamins/Minerals TAB PO SCH (08:24)
[2017-01-25] MEDS: SOLIFENACIN 5 MG PO SCH (08:25)
[2017-01-25 11:50] VITALS: BP 107/54
== END 2017-01-25 18:19 | disposition home or self-care (01) | DRG 643 ==
LOC: MED 17:37 → ICU 01-18 10:29 → MEDTELE 01-19 14:11
PROVIDERS: ADMIT Internal Medicine Hematology & Oncology; ATTEND Internal Medicine Hematology & Oncology
DX: E22.2 Syndrome of inappropriate secretion of antidiuretic hormone (principal); J12.9 Viral pneumonia, unspecified; J90 Pleural effusion, not elsewhere classified; C91.10 Chronic lymphocytic leukemia of B-cell type not having achieved remission; I08.3 Combined rheumatic disorders of mitral, aortic and tricuspid valves; I27.20 Pulmonary hypertension, unspecified; J32.9 Chronic sinusitis, unspecified; I42.9 Cardiomyopathy, unspecified; I48.91 Unspecified atrial fibrillation; H10.9 Unspecified conjunctivitis; E78.5 Hyperlipidemia, unspecified; M19.90 Unspecified osteoarthritis, unspecified site; M81.0 Age-related osteoporosis without current pathological fracture; Z83.3 Family history of diabetes mellitus; Z82.5 Family history of asthma and other chronic lower respiratory diseases; Z88.8 Allergy status to other drugs, medicaments and biological substances; R19.7 Diarrhea, unspecified; Z66 Do not resuscitate
CPT/HCPCS: 1036F; 1126F; 36415; 36592; 70553; 71010; 71020; 71250; 80048; 80053; 81003; 82570; 83605; 83735; 83880; 83930; 83970; 84145; 84300; 84443; 84484; 84550; 85025; 85027; 87070; 87205; 87502; 93005; 93306; 99214; 99222; 99232; 99282; A9270-GY; A9579; G0463; G8427; J0456; J0696; J1644; J1650; J2270; J3490

== ENCOUNTER 2017-10-06 10:33 | Day surgery (SDC) | payer MEDICARE ==
[~2017-10-06 10:33] MED LIST: Buffered Lidocaine 0.9% SYRIN* 5 ML/SYR SYRINGE INTRADERM ONE; DiMENhydriNATE IV* 50 MG/ML VIAL IV PUSH PRN; Famotidine IV* 10 MG/ML 2 ML (20 mg) IV ONE; Naloxone* 0.4 MG/ML 1 ML VIAL IV PRN; Ondansetron TAB* 4 MG PO ONE; PROCHLORPERAZINE INJ 5 MG/ML 2 ML VIAL IV PRN; fentaNYL* 50 MCG/ML 2 ML VIAL (100 MCG VIAL) IV PRN; oxyCODONE/Acetamin 5/325 MG* TAB PO PRN
[2017-10-06] MEDS ORDERED: Ondansetron ODT TAB* 4 MG ONE (10:34)
[2017-10-06] MEDS ORDERED: Famotidine IV* 10 MG/ML 2 ML (20 mg) ONE (10:34)
[2017-10-06] MEDS ORDERED: ceFAZolin 2 GM PREMIX (*) 2 GM/50 ML BAG IVPB ONE (10:34)
[2017-10-06] MEDS ORDERED: fentaNYL* 50 MCG/ML 2 ML VIAL (100 MCG VIAL) ONE (11:47)
[2017-10-06] MEDS ORDERED: Midazolam* 1 MG/ML 5 ML VIAL (5 MG) ONE (11:48)
[2017-10-06] MEDS ORDERED: KETAMINE HCL* 50 MG/ML 10 ML VIAL ONE (11:48)
[2017-10-06] MEDS ORDERED: Bupivacaine 0.5% PF 10 ML VIAL INJ ONE (12:09)
[2017-10-06] MEDS ORDERED: Lidocaine 2% PF * 5 ML VIAL ONE (12:55)
[2017-10-06] MEDS ORDERED: Flumazenil* 0.1 MG/ML 5 ML MDV ONE (12:55)
[2017-10-06] MEDS ORDERED: Propofol* 10 MG/ML 20 ML BTL IV PUSH ONE (12:55)
--- NOTE | 2017-10-06 13:26 | OP ---
Operative Report - Blank - Operative Report Date of Operation: 10/06/17 Note: PATIENT: Stacey Louie DATE OF : 1940 DATE OF SURGERY: 10/06/2017 SURGEON: Barron Cavazos MD TELESALES SUPERVISOR: DAIN Beckwith, whos assistance was necessary for positioning , retraction, help with instrumentation, and closure. ANESTHESIOLOGIST: Dr. Diehl PREOPERATIVE DIAGNOSIS: Right leg soft tissue mass POSTOPERATIVE DIAGNOSIS: Right leg soft tissue mass OPERATION: Excision of right leg soft tissue mass ANESTHESIA: MAC IMPLANTS: none TOURNIQUET TIME: none SPECIMENS: mass to pathology ESTIMATED BLOOD LOSS: minimal COMPLICATIONS: none STATUS: Stable from the operating room to the recovery room and then home INDICATIONS FOR PROCEDURE: Maricruz has had a long-standing right leg soft tissue mass that has been causing her problems. Both operative and non-operative treatment alternatives were reviewed. Further, the nature and risks of surgery were reviewed in careful detail, in the office as well as the pre-operative holding area. Our discussions regarding the risks of surgery included, but were not limited to, infection, wound problems, nerve injury, neuroma, RSD, persistent symptoms, blood clot, failure of the surgery, and even the remote chance of catastrophic complication, including loss of limb. DESCRIPTION OF PROCEDURE: The patient was seen in the preoperative holding unit and informed written consent was obtained. The appropriate extremity was marked. The patient was then brought to the operating room and carefully positioned on the operating room table. Anesthesia was induced. All bony prominences were padded with great care. A chlorhexidine based pre-scrub was performed followed by a chloraprep prep and drape in standard sterile fashion. A surgical safety pause was then conducted in which we confirmed the appropriate patient, extremity, planned procedure, availability of equipment, indication and administration of prophylactic antibiotics, and DVT prophylaxis in the form of a compression boot on the non-surgical extremity. I began by making an ellipsoid incision around the base of the mass on the anterior lower leg. I then sharply excised the mass with a 15 blade scalpel. All of the mass appeared to have been removed. It measured 2cm in diameter. It was then sent to pathology. The wound was then irrigated and hemostasis obtained. The wound was then closed in layers utilizing 3-0 Monocryl and 3-0 nylon. A sterile dressing was then applied. The patient was then awakened from anesthesia and transferred to the recovery room in stable condition. There were no complications. All needle and sponge counts were correct at the end of the case. ATTESTATION: I attest I was present and scrubbed and performed the critical portions of the procedure myself. POSTOPERATIVE PLAN: Follow-up in 2 weeks for suture removal
[2017-10-06 13:50] VITALS: BP 117/76
== END 2017-10-06 14:20 | disposition home or self-care (01) ==
LOC: OR 10:33
PROVIDERS: ATTEND Orthopaedic Surgery
DX: D36.10 Benign neoplasm of peripheral nerves and autonomic nervous system, unspecified (principal); I48.91 Unspecified atrial fibrillation; K21.9 Gastro-esophageal reflux disease without esophagitis; Z85.6 Personal history of leukemia; I10 Essential (primary) hypertension; M19.90 Unspecified osteoarthritis, unspecified site; Z79.01 Long term (current) use of anticoagulants; I25.2 Old myocardial infarction
CPT/HCPCS: 88305; A9270-GY; J0690; J2250; J2704; J3010

== ENCOUNTER 2017-11-15 09:49 | Day surgery (SDC) | payer MEDICARE ==
[~2017-11-15 09:49] MED LIST changes: -DiMENhydriNATE IV* 50 MG/ML VIAL IV PUSH PRN; -Naloxone* 0.4 MG/ML 1 ML VIAL IV PRN; -Ondansetron TAB* 4 MG PO ONE; -PROCHLORPERAZINE INJ 5 MG/ML 2 ML VIAL IV PRN; -fentaNYL* 50 MCG/ML 2 ML VIAL (100 MCG VIAL) IV PRN; -oxyCODONE/Acetamin 5/325 MG* TAB PO PRN
[2017-11-15] MEDS ORDERED: Famotidine IV* 10 MG/ML 2 ML (20 mg) ONE (09:53)
[2017-11-15] MEDS ORDERED: ceFAZolin 2 GM in NS PREMIX(*) 2 GM/100 ML BAG IVPB ONE (09:53)
[2017-11-15] MEDS ORDERED: Lidocaine 1% INJ* 10 MG/ML 30 ML SDV ONE (11:44)
[2017-11-15] MEDS ORDERED: Bacitracin IV* 50,000 UNITS INJ ONE (11:44)
[2017-11-15] MEDS ORDERED: DiMENhydriNATE IV* 50 MG/ML VIAL IV PUSH PRN (11:54)
[2017-11-15] MEDS ORDERED: HYDROcodone/ACETAMIN 5-325 MG* 1 TAB PO PRN (11:54)
[2017-11-15] MEDS ORDERED: Ketorolac INJ* 30 MG/ML 1 ML VIAL IV PRN (11:54)
[2017-11-15] MEDS ORDERED: Naloxone* 0.4 MG/ML 1 ML VIAL IV PRN (11:54)
[2017-11-15] MEDS ORDERED: Acetaminophen TAB* 325 MG PO PRN (11:54)
[2017-11-15] MEDS ORDERED: oxyCODONE TAB* 5 MG TAB PO PRN (11:54)
[2017-11-15] MEDS ORDERED: Propofol* 10 MG/ML 20 ML BTL IV PUSH ONE (11:59)
[2017-11-15] MEDS ORDERED: Lidocaine 2% PF * 5 ML VIAL ONE (11:59)
[2017-11-15] MEDS ORDERED: fentaNYL* 50 MCG/ML 2 ML VIAL (100 MCG VIAL) ONE (11:59)
[2017-11-15] MEDS ORDERED: Midazolam* 1 MG/ML 2 ML VIAL (2 MG) ONE (11:59)
[2017-11-15] MEDS ORDERED: EPHEDrine (Pressors)* 50 MG/ML VIAL ONE (12:22)
[2017-11-15 13:18] VITALS: BP 129/53
--- NOTE | 2017-11-17 05:54 | OP ---
DATE OF OPERATION: 11/15/17 - [facility] DATE OF : [birth year] SURGEON: Jones Weaver MD PROGRAM MGR: DAIN Rose ANESTHESIA: General. PRE-OP DIAGNOSIS: Right carpal tunnel syndrome. POST-OP DIAGNOSIS: Right carpal tunnel syndrome. OPERATIVE PROCEDURE: Right carpal tunnel release. DESCRIPTION OF PROCEDURE: The patient was placed on the operating table in the supine position and after satisfactory IV sedation had been achieved, the right hand was prepped and draped in the sterile manner for right carpal tunnel release. A skin incision was outlined beginning at the thenar crease and extending into the palm with a distance of 3 cm. At the transverse carpal crease, this was turned toward the ulnar aspect of the hand for 1 cm and extended proximally another centimeter. This incision was infiltrated with 1% Xylocaine plain. An incision was then made along the Z-shaped incision down to the subcutaneous tissues. Self- retaining retractors were placed to facilitate exposure. The palmaris brevis muscle was divided identification of the transverse carpal ligament. Utilizing sharp dissection, an opening was made in the transversae carpal ligament. A mosquito hemostat was then used to place between the nerve and thickened transverse carpal ligament and sharp dissection carried down with the mosquito protecting the nerve. This was initially carried distally into the palm until palmar fat was identified. More proximally , the thickened ligament was divided utilizing Metzenbaum scissors. This tube was carried proximally until the extent of the transverse carpal ligament had been divided. The wound was then thoroughly irrigated, after which the subcutaneous tissues were reapproximated with 3-0 Vicryl and the skin was closed with running locking nylon suture. The estimated blood loss was less than 10 cc and the final sponge, padding, and needle counts were correct. The patient was taken to the recovery room in stable condition. [id number]/[facility] #: [id number] [facility]
== END 2017-11-15 13:52 | disposition home or self-care (01) ==
LOC: OR 09:49
PROVIDERS: ATTEND Neurological Surgery
DX: G56.01 Carpal tunnel syndrome, right upper limb (principal); I48.91 Unspecified atrial fibrillation; Z79.01 Long term (current) use of anticoagulants; I10 Essential (primary) hypertension; K21.9 Gastro-esophageal reflux disease without esophagitis; Z85.6 Personal history of leukemia
CPT/HCPCS: A9270-GY; J0690; J2250; J2704; J3010

== ENCOUNTER 2019-02-01 13:23 | Emergency (ER) | payer MEDICARE ==
[2019-02-01] MEDS ORDERED: Tetracaine 0.5% OPTH.SOL 4 ML* 1 DROP BTL LEFT EYE ONE (16:32)
[2019-02-01] MEDS ORDERED: Fluorescein Sodium TOPICAL* 1 MG TEST STRIP OPHTHALMIC ONE (16:33)
--- NOTE | 2019-02-01 16:33 | ED ---
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 The eye is also red and watery, which is also new. Patient denies burning on the eyeball and she denies injuring the eye. Patient has had floaters in her left eye since October and per her eye doctor, her cataracts have been getting worse. However, she had her eye pressure checked and the patient reports it was normal. Patient reports that since then she felt like her sight has gotten worst, described as when I turn my head certain ways, there seems to be blank spots. This morning, patient also felt nauseous. The patient rates the pain 3/10 in severity. Symptoms aggravated by nothing. Symptoms alleviated by nothing. When patient saw her eye doctor in [place] in October, she reports that her left retina was evaluated and it was normal. - History of Current Complaint Chief Complaint: EDGeneral Time Seen by Provider: 02/01/19 16:21 Hx Obtained From: Patient Onset/Duration: Gradual Onset, Lasting Hours - Since waking up this morning, Still Present Severity: Mild - Allergies/Home Medications Allergies/Adverse Reactions: Allergies Allergy/AdvReac Type Severity Reaction Status Date / Time Sulfa (Sulfonamide Allergy Severe Headache Verified 02/01/19 13:35 Antibiotics) terbinafine [From Lamisil] Allergy Severe GI Verified 02/01/19 13:35 Upset,heartburn lobster Allergy Severe Diarrhea Uncoded 02/01/19 13:35 PMH/Surg Hx/FS Hx/Imm Hx Endocrine/Hematology History: Reports: Hx Anemia - IS ON IRON INFUSIONS, NEXT SCHEDULE 10/04/17 & 10/11/17 Denies: Hx Diabetes Cardiovascular History: Reports: Hx Congestive Heart Failure Denies: Hx Hypertension, Hx Pacemaker/ICD GI History: Reports: Hx Gastroesophageal Reflux Disease - ON DAILY MEDS, HELPS History: Denies: Hx Renal Disease Musculoskeletal History: Reports: Hx Arthritis Sensory History: Reports: Hx Cataracts - BILATERAL, Hx Contacts or Glasses Denies: Hx Hearing Aid Opthamlomology History: Reports: Hx Cataracts - BILATERAL, Hx Contacts or Glasses Psychiatric History: Denies: Hx Panic Disorder - Cancer History Cancer Type, 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 - CLL Hx Chemotherapy: No Hx Radiation Therapy: No - Surgical History Surgery Procedure, Year, and Place: 3 c-sect,. hysterectomy. bladder sling. foot - bunionectomy. trigger finger x2 - kristen ring fingers Hx Anesthesia Reactions: No Infectious Disease History: No Infectious Disease History: Reports: History Other Infectious Disease - viral conjunctivitis Denies: Traveled Outside the [place] in Last 30 Days - Family History Known Family History: Positive: Hypertension, Diabetes, Other - Father had bladder cancer - Social History Alcohol Use: None Hx Substance Use: No Substance Use Type: Reports: None Hx Tobacco Use: No Smoking Status (MU): Never Smoked Tobacco Have You Smoked in the Last Year: No Review of Systems Eyes: Other - Left eye pain and floaters Positive: Nausea All Other Systems Reviewed And Are Negative: Yes Physical Exam - Summary Physical Exam Summary: Constitutional: Well-developed, Well-nourished, Alert. (-) Distressed Skin: Warm, Dry HENT: Normocephalic; Atraumatic Eyes: I am unable to complete a full funduscopic exam due to the patients cataracts. I am able to visualize the retina of the right eye, which looks normal: there are no flame hemorrhages. However, I am unable to visualize the retina of the left eye. Her pupil is not dilated and is constricted from the light. There is no obvious, glaring corneal abrasion of the left eye. There is a hyphema that is about 30% of the anterior chamber of the left eye, but it is not encroaching above the pupil. Chemosis of the left eye. The pressure in the left eye by tonometry is 55mmHg while the pressure in the right eye is 17- 20mmHg. Neck: Musculoskeletal ROM normal neck. (-) JVD, (-) Stridor, (-) Tracheal deviation Cardio: Rhythm regular, rate normal, Heart sounds normal; Intact distal pulses; The pedal pulses are 2+ and symmetric. Radial pulses are 2+ and symmetric. Pulmonary/Chest wall: Effort normal. (-) Respiratory distress, (-) Wheezes, (-) Rales Abd: Soft, (-) tenderness, (-) Distension, (-) Guarding, (-) Rebound Musculoskeletal: (-) Edema Neuro: Alert, Oriented x3 Psych: Mood and affect Normal Triage Information Reviewed: Yes Vital Signs On Initial Exam: Initial Vitals Temp Pulse Resp BP Pulse Ox 97.8 F 69 16 126/73 95 02/01/19 13:32 02/01/19 13:32 02/01/19 13:32 02/01/19 13:32 02/01/19 13:32 Vital Signs Reviewed: Yes Procedures - Sedation Patient Received Moderate/Deep Sedation with Procedure: No Diagnostics - Vital Signs Vital Signs Temp Pulse Resp BP Pulse Ox 02/01/19 13:32 97.8 F 69 16 126/73 95 - Laboratory Lab Statement: Any lab studies that have been ordered have been reviewed, and results considered in the medical decision making process. Re-Evaluation - Re-Evaluation First Eval Re-Evaluation Time: 17:30 Comment: Discussed Dr. Casas's and Dr. Teague's offers with the patient. Patient would prefer to go to Dr. Casas's office in [place] since they are already established patient's at [place]. EENT Course/Dx - Course Course Of Treatment: This patient is a 78 year old F presenting to ED with a chief complaint of new onset left eye pain since earlier today. On physical exam , the pressure in the left eye by tonometry is 55mmHg while the pressure in the right eye is 17-20mmHg. Patient is on Metoprolol and a blood thinner. I believe the patient is having acute closed-angle glaucoma. Thus I gave the patient Diamox, Brimonidine, Pilocarpine 1% eye drop, and Timoptic 0.5% eye drop. I paged our opthalmologist elevator conductor, however they never called back. At 1710, discussed patient case with Dr. Casas, tapering machine operator at [place], who said he will see the patient in his office. At 1720, Dr. Teague, opthalmologist [place] [facility] [place] and stated that even though he is not elevator conductor right now, he would be able to see the patient. I discussed this with the patient and their family and they would prefer to go to [place] where the patient already sees an ophthalmology. 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 Casas' s office with the eye drop medications I gave her. Patient understands and agrees with this plan. - Diagnoses Provider Diagnoses: Acute closed-angle glaucoma - Provider Notifications Discussed Care Of Patient With: Esvin Casas Time Discussed With Above Provider: 17:10 Instructed by Provider To: Send To Office Now - At 1710, discussed patient case with Dr. Casas, tapering machine operator at [place], who said he will see the patient in his office. He also requested the patient bring the eye drop medications I gave her to his office. At 1720, Dr. Teague, opthalmologist at [facility] [place] and stated that even though he is not elevator conductor right now, he would be able to see the patient. Discharge ED - Sign-Out/Discharge Documenting (check all that apply): Patient Departure - Discharge - Discharge Plan Condition: Stable Disposition: HOME Patient Education Materials: Glaucoma (ED) Referrals: Ford Correa MD [Primary Care Provider] - Additional Instructions: Go straight to Dr. Casas's office in [place]. [address] [place] [address] - Attestation Statements Document Initiated by Scribe: Yes Documenting Scribe: Ford Celestin Provider For Whom Jose is Documenting (Include Credential): Amadou Schaefer MD Scribe Attestation: I, Ford Celestin, scribed for Amadou Schaefer MD on 02/01/19 at 1741. Status of Scribe Document: Ready
[2019-02-01] MEDS ORDERED: Pilocarpine 1% OPTH.SOL* 15 ML BTL LEFT EYE ONE (16:55)
[2019-02-01] MEDS ORDERED: Brimonidine P 0.15%(NF) OPH SOL 5 ML BTL LEFT EYE ONE (16:55)
[2019-02-01] MEDS ORDERED: Timolol 0.5% OPTH.SOL* BTL LEFT EYE ONE (16:55)
[2019-02-01] MEDS ORDERED: acetaZOLAMIDE TAB* 250 MG PO ONE (16:56)
[2019-02-01 18:09] VITALS: BP 163/85
== END 2019-02-01 18:07 | disposition home or self-care (01) ==
LOC: ED 13:23
DX: H40.212 Acute angle-closure glaucoma, left eye (principal); I48.91 Unspecified atrial fibrillation; D64.9 Anemia, unspecified; I50.9 Heart failure, unspecified; K21.9 Gastro-esophageal reflux disease without esophagitis; Z85.6 Personal history of leukemia; Z79.01 Long term (current) use of anticoagulants; Z79.899 Other long term (current) drug therapy; Z88.2 Allergy status to sulfonamides; Z88.8 Allergy status to other drugs, medicaments and biological substances
CPT/HCPCS: 99282; A9270-GY

== ENCOUNTER 2022-03-01 11:32 | Inpatient (IN) ==
[2022-03-01] MEDS ORDERED: NS 0.9% 1000 ml BAG 1,000 ML IV ONE (11:54)
[2022-03-01 15:22] LABS: Hematocrit 36 % (35-47); Hemoglobin 10.9 g/dL (12.0-16.0); Mean Corpuscular HGB Conc 31 g/dL (31-36); Mean Corpuscular Hemoglobin 31 pg (27-31); Mean Corpuscular Volume 102 fL (80-97); Mean Platelet Volume 8.3 fL (7.4-10.4); Platelet Count 160 10^3/uL (150-450); Red Blood Count 3.49 10^6 /uL (3.70-4.87); Red Cell Distribution Width 15 % (10-15); White Blood Count 90.7 10^3/uL (3.5-10.8)
[2022-03-01 15:44] LABS: High Sens Troponin Baseline 63 pg/mL (<15)
[2022-03-01 15:51] LABS: Macrocytosis 1+
[2022-03-01 15:52] LABS: ABS Basophils 0.3 10^3/ul (0-0.2); ABS Eosinophils 0.8 10^3/ul (0-0.6); ABS Lymphocytes 81.8 10^3/ul (1.0-4.8); ABS Monocytes 1.5 10^3/ul (0-0.8); ABS Neutrophils 6.3 10^3/ul (1.5-7.7); ABS Nucleated RBC 0.2 10^3/ul; Eosinophil % 0.9 %; Lymphocyte % 90.1 %; Nucleated Red Blood Cells % 0.2
[2022-03-01 15:59] LABS: Anion Gap 9 mmol/L (2-11); CO2 Carbon Dioxide 30 mmol/L (22-32); Calcium 8.7 mg/dL (8.6-10.3); Chloride 97 mmol/L (101-111); Magnesium 2.2 mg/dL (1.9-2.7); Potassium 4.2 mmol/L (3.5-5.0); Sodium 136 mmol/L (135-145)
[2022-03-01 16:00] LABS: Urine Appearance Clear; Urine Bilirubin Negative (Negative); Urine Blood Negative (Negative); Urine Color Yellow; Urine Glucose Negative (Negative); Urine Ketones Negative (Negative); Urine Nitrite Negative (Negative); Urine Protein Negative (Negative); Urine Specific Gravity 1.009 (1.002-1.030); Urine Urobilinogen Negative (Negative)
[2022-03-01 16:05] LABS: ALT 30 U/L (7-52); AST 38 U/L (13-39); Albumin/Globulin Ratio 2.4 (1-3); Alcohol, S < 13 mg/dL (<13); Alkaline Phosphatase 282 U/L (35-149); Blood Urea Nitrogen 36 mg/dL (6-24); Globulin 1.7 g/dL (2-4); Glucose 101 mg/dL (70-100); Total Protein 5.7 g/dL (6.4-8.9); eGFR CKD-EPI 48.4 (>60)
[2022-03-01 16:38] LABS: TSH Ultra Thyroid Stim Horm 3.66 mcIU/mL (0.34-5.60)
[2022-03-01 17:18] LABS: High Sensitivity Troponin 1 Hr 56 pg/mL (<15)
[2022-03-01] MEDS ORDERED: cefTRIAXone 1 gm/50 mL D5W 1 GM/50 ML BAG IV ONE (20:55)
[2022-03-02 10:45] LABS: Hematocrit 30 % (35-47); Hemoglobin 9.3 g/dL (12.0-16.0); Mean Corpuscular HGB Conc 31 g/dL (31-36); Mean Corpuscular Hemoglobin 31 pg (27-31); Mean Corpuscular Volume 100 fL (80-97); Mean Platelet Volume 8.3 fL (7.4-10.4); Platelet Count 149 10^3/uL (150-450); Red Blood Count 2.99 10^6 /uL (3.70-4.87); Red Cell Distribution Width 15 % (10-15); White Blood Count 87.1 10^3/uL (3.5-10.8)
[2022-03-02] MEDS: Aspirin EC 81 mg TAB.EC (enteric coated) PO SCH (10:47)
[2022-03-02] MEDS: Azithromycin 500 mg/250 ml NS 500 MG/250 ML BAG IVPB SCH (10:48)
[2022-03-02 11:33] LABS: Calcium 8.1 mg/dL (8.6-10.3); Potassium 3.8 mmol/L (3.5-5.0)
[2022-03-02 11:39] LABS: eGFR CKD-EPI 69.8 (>60)
[2022-03-02 11:39] LABS: ABS Basophils 0.3 10^3/ul (0-0.2); ABS Eosinophils 0.6 10^3/ul (0-0.6); ABS Lymphocytes 79.4 10^3/ul (1.0-4.8); ABS Monocytes 0.9 10^3/ul (0-0.8); ABS Nucleated RBC 0.1 10^3/ul; Eosinophil % 0.6 %; Lymphocyte % 91.2 %; Macrocytosis 1+; Nucleated Red Blood Cells % 0.1
[2022-03-02 11:40] LABS: Smudge Cells Present
[2022-03-02] MEDS: PTO: Mirabegron 50 mg ER TAB (NF) PO SCH (12:29)
[2022-03-02 16:01] LABS: Corrected Retic Count 2.1 % (0.5-1.5); Hematocrit for Retic CNT 30 % (35-47); Immature Retic Fraction 0.49
[2022-03-02 17:14] LABS: Ferritin 76.2 ng/mL (11-307)
[2022-03-02] MEDS ORDERED: cefTRIAXone 1 gm/50 mL D5W 1 GM/50 ML BAG IV SCH (18:00)
[2022-03-02 20:02] LABS: Body Fluid Appearance Bloody; Body Fluid Mono 4 %; Body Fluid Source Peritonial Fluid; Body Fluid Total Cells Counted 200
[2022-03-02 20:03] LABS: Body Fluid Color Red
[2022-03-02 20:05] LABS: Body Fluid WBC 3248 /mcL
[2022-03-03 06:19] LABS: Hematocrit 31 % (35-47); Hemoglobin 9.7 g/dL (12.0-16.0); Mean Corpuscular HGB Conc 32 g/dL (31-36); Mean Corpuscular Hemoglobin 32 pg (27-31); Mean Corpuscular Volume 101 fL (80-97); Mean Platelet Volume 7.9 fL (7.4-10.4); Platelet Count 140 10^3/uL (150-450); Red Blood Count 3.03 10^6 /uL (3.70-4.87); Red Cell Distribution Width 15 % (10-15); White Blood Count 99.6 10^3/uL (3.5-10.8)
[2022-03-03 07:11] LABS: Calcium 8.2 mg/dL (8.6-10.3); Magnesium 2.3 mg/dL (1.9-2.7); Potassium 3.8 mmol/L (3.5-5.0)
[2022-03-03 07:16] LABS: eGFR CKD-EPI 82.6 (>60)
[2022-03-03 07:23] LABS: ABS Basophils 0.3 10^3/ul (0-0.2); ABS Eosinophils 0.6 10^3/ul (0-0.6); ABS Lymphocytes 90.5 10^3/ul (1.0-4.8); ABS Neutrophils 6.3 10^3/ul (1.5-7.7); ABS Nucleated RBC 0.3 10^3/ul; Eosinophil % 0.6 %; Lymphocyte % 90.8 %; Nucleated Red Blood Cells % 0.3
[2022-03-03] MEDS: Azithromycin 500 mg/250 ml NS 500 MG/250 ML BAG IVPB SCH (09:06)
[2022-03-03] MEDS: Aspirin EC 81 mg TAB.EC (enteric coated) PO SCH (09:07)
[2022-03-03] MEDS: PTO: Mirabegron 50 mg ER TAB (NF) PO SCH (09:08)
[2022-03-03] MEDS: Cefepime 1 GM in Dextrose 1 GM/50 ML BAG IV SCH ×2 (10:36→20:14)
[2022-03-03] MEDS ORDERED: Furosemide 20 mg/2 ml IV VIAL IV ONE (11:24)
[2022-03-03 12:04] LABS: INR 1.85 (0.88-1.18)
[2022-03-03 12:07] LABS: Albumin 3.5 g/dL (3.2-5.2); Calcium 8.2 mg/dL (8.6-10.3); Potassium 3.9 mmol/L (3.5-5.0); Total Bilirubin 1.1 mg/dL (0.2-1.0)
[2022-03-03 12:12] LABS: Albumin/Globulin Ratio 2.1 (1-3); Globulin 1.7 g/dL (2-4); Total Protein 5.2 g/dL (6.4-8.9); eGFR CKD-EPI 71.8 (>60)
[2022-03-03] MEDS ORDERED: Dexamethasone IV 4 MG/ML VIAL 1 ml VIAL IV SLOW PU SCH ×2 (13:52→14:00)
[2022-03-03] MEDS: Dexamethasone IV 40 MG in NS 0.9% 50 ML 50 ML IVPB SCH (16:00)
[2022-03-03 16:17] LABS: HIV 4th Generation Nonreactive (Nonreactive)
[2022-03-03 16:22] LABS: Hepatitis B Surface Antigen Nonreactive (Nonreactive)
[2022-03-03 16:26] LABS: Hepatitis B Core IgM Nonreactive (Nonreactive)
[2022-03-04 05:27] LABS: Hepatitis B Surface Ab Not Immune (Immune); Hepatitis C Antibody Negative (Negative)
[2022-03-04 06:33] LABS: INR 1.6 (0.88-1.18)
[2022-03-04 06:45] LABS: Albumin 3.6 g/dL (3.2-5.2); Albumin/Globulin Ratio 2.4 (1-3); Calcium 8.3 mg/dL (8.6-10.3); Globulin 1.5 g/dL (2-4); Magnesium 2.3 mg/dL (1.9-2.7); Potassium 4.2 mmol/L (3.5-5.0); Total Protein 5.1 g/dL (6.4-8.9); eGFR CKD-EPI 76.3 (>60)
[2022-03-04 07:07] LABS: ABS Basophils 0.1 10^3/ul (0-0.2); ABS Lymphocytes 104.9 10^3/ul (1.0-4.8); ABS Monocytes 1.6 10^3/ul (0-0.8); ABS Neutrophils 7.2 10^3/ul (1.5-7.7); ABS Nucleated RBC 0.2 10^3/ul; Hematocrit 33 % (35-47); Hemoglobin 10.1 g/dL (12.0-16.0); Lymphocyte % 92.1 %; Mean Corpuscular HGB Conc 31 g/dL (31-36); Mean Corpuscular Hemoglobin 31 pg (27-31); Mean Corpuscular Volume 102 fL (80-97); Mean Platelet Volume 8.3 fL (7.4-10.4); Nucleated Red Blood Cells % 0.2; Platelet Count 151 10^3/uL (150-450); Red Blood Count 3.23 10^6 /uL (3.70-4.87); Red Cell Distribution Width 15 % (10-15); White Blood Count 113.9 10^3/uL (3.5-10.8)
[2022-03-04] MEDS: Aspirin EC 81 mg TAB.EC (enteric coated) PO SCH (08:15)
[2022-03-04] MEDS: Cefepime 1 GM in Dextrose 1 GM/50 ML BAG IV SCH ×2 (08:15→20:20)
[2022-03-04] MEDS: Azithromycin 500 mg/250 ml NS 500 MG/250 ML BAG IVPB SCH (09:01)
[2022-03-04] MEDS: PTO: Mirabegron 50 mg ER TAB (NF) PO SCH (09:08)
[2022-03-04 09:13] LABS: Macrocytosis 1+
[2022-03-04] MEDS: Dexamethasone IV 40 MG in NS 0.9% 50 ML 50 ML IVPB SCH (10:30)
[2022-03-05 06:56] LABS: Hematocrit 31 % (35-47); Hemoglobin 9.6 g/dL (12.0-16.0); Mean Corpuscular HGB Conc 31 g/dL (31-36); Mean Corpuscular Hemoglobin 31 pg (27-31); Mean Corpuscular Volume 100 fL (80-97); Mean Platelet Volume 9.3 fL (7.4-10.4); Platelet Count 145 10^3/uL (150-450); Red Cell Distribution Width 15 % (10-15); White Blood Count 106.8 10^3/uL (3.5-10.8)
[2022-03-05 07:08] LABS: ABS Basophils 0.1 10^3/ul (0-0.2); ABS Lymphocytes 92.2 10^3/ul (1.0-4.8); ABS Monocytes 2.2 10^3/ul (0-0.8); ABS Neutrophils 12.3 10^3/ul (1.5-7.7); ABS Nucleated RBC 0.2 10^3/ul; Lymphocyte % 86.3 %; Nucleated Red Blood Cells % 0.2
[2022-03-05 07:38] LABS: Albumin 3.6 g/dL (3.2-5.2); Albumin/Globulin Ratio 2.4 (1-3); Calcium 8.3 mg/dL (8.6-10.3); Direct Bilirubin 0.3 mg/dL (0.03-0.18); Globulin 1.5 g/dL (2-4); Indirect Bilirubin 0.6 mg/dL (0.3-1.0); Magnesium 2.6 mg/dL (1.9-2.7); Potassium 4.7 mmol/L (3.5-5.0); Total Bilirubin 0.9 mg/dL (0.2-1.0); Total Protein 5.1 g/dL (6.4-8.9); eGFR CKD-EPI 75.1 (>60)
[2022-03-05 09:42] LABS: Lactate Dehydrogenase, BF 144 U/L
[2022-03-05] MEDS: Cefepime 1 GM in Dextrose 1 GM/50 ML BAG IV SCH ×2 (09:46→20:41)
[2022-03-05] MEDS: PTO: Mirabegron 50 mg ER TAB (NF) PO SCH (09:47)
[2022-03-05] MEDS: Aspirin EC 81 mg TAB.EC (enteric coated) PO SCH (09:47)
[2022-03-05 10:15] LABS: Albumin, BF 2.1 g/dL; Fluid Type, Albumin PERITONEAL; Glucose, BF 165 mg/dL
[2022-03-05 10:17] LABS: Fluid Type, Protein, Total PERITONEAL; Total Protein, BF 2.8 g/dL
[2022-03-05] MEDS: Dexamethasone IV 40 MG in NS 0.9% 50 ML 50 ML IVPB SCH (11:01)
[2022-03-05] MEDS ORDERED: Dextrose 50% Syringe 50 ml 25 GM/50 ML SYRINGE IV PUSH PRN (14:54)
[2022-03-06] MEDS: Cefepime 1 GM in Dextrose 1 GM/50 ML BAG IV SCH ×2 (07:47→22:25)
[2022-03-06 08:04] LABS: Hematocrit 30 % (35-47); Hemoglobin 9.4 g/dL (12.0-16.0); Mean Corpuscular HGB Conc 31 g/dL (31-36); Mean Corpuscular Hemoglobin 31 pg (27-31); Mean Corpuscular Volume 101 fL (80-97); Mean Platelet Volume 8.9 fL (7.4-10.4); Platelet Count 154 10^3/uL (150-450); Red Blood Count 3.02 10^6 /uL (3.70-4.87); Red Cell Distribution Width 15 % (10-15); White Blood Count 91.3 10^3/uL (3.5-10.8)
[2022-03-06 08:24] LABS: INR 1.43 (0.88-1.18)
[2022-03-06 08:37] LABS: Albumin 3.7 g/dL (3.2-5.2); Albumin/Globulin Ratio 2.5 (1-3); Calcium 8.6 mg/dL (8.6-10.3); Globulin 1.5 g/dL (2-4); Magnesium 2.8 mg/dL (1.9-2.7); Total Bilirubin 1.2 mg/dL (0.2-1.0); Total Protein 5.2 g/dL (6.4-8.9)
[2022-03-06] MEDS: Dexamethasone IV 40 MG in NS 0.9% 50 ML 50 ML IVPB SCH (08:42)
[2022-03-06] MEDS: PTO: Mirabegron 50 mg ER TAB (NF) PO SCH (08:43)
[2022-03-06] MEDS: Aspirin EC 81 mg TAB.EC (enteric coated) PO SCH (08:43)
[2022-03-06 08:45] LABS: Potassium 5.3 mmol/L (3.5-5.0)
[2022-03-06 08:57] LABS: ABS Basophils 0.1 10^3/ul (0-0.2); ABS Monocytes 1.6 10^3/ul (0-0.8); ABS Neutrophils 11.6 10^3/ul (1.5-7.7); ABS Nucleated RBC 0.2 10^3/ul; Lymphocyte % 85.5 %; Nucleated Red Blood Cells % 0.2
[2022-03-06 10:18] LABS: Uric Acid 13.4 mg/dL (2.3-6.6)
[2022-03-06] MEDS ORDERED: Rasburicase 1.5 MG VIAL(NF) IVPB ONE (13:04)
[2022-03-06] MEDS ORDERED: Rasburicase 3 MG in NS 0.9% 50 ML 48 ML IVPB ONE (14:30)
[2022-03-06 15:45] LABS: Calcium 8.6 mg/dL (8.6-10.3); eGFR CKD-EPI 60.2 (>60)
[2022-03-06 15:47] LABS: Potassium 5.4 mmol/L (3.5-5.0)
[2022-03-06] MEDS ORDERED: SODIUM ZIRCONIUM CYCLOSILICATE 10 GM PACKET PO ONE (16:01)
[2022-03-07 00:21] LABS: Calcium 8.5 mg/dL (8.6-10.3); eGFR CKD-EPI 62.6 (>60)
[2022-03-07 06:46] LABS: Hematocrit 27 % (35-47); Hemoglobin 8.6 g/dL (12.0-16.0); Mean Corpuscular HGB Conc 32 g/dL (31-36); Mean Corpuscular Hemoglobin 32 pg (27-31); Mean Corpuscular Volume 100 fL (80-97); Platelet Count 133 10^3/uL (150-450); Red Blood Count 2.71 10^6 /uL (3.70-4.87); Red Cell Distribution Width 14 % (10-15); White Blood Count 62.8 10^3/uL (3.5-10.8)
[2022-03-07 06:53] LABS: INR 1.48 (0.88-1.18)
[2022-03-07 07:07] LABS: Albumin 3.6 g/dL (3.2-5.2); Albumin/Globulin Ratio 2.8 (1-3); Calcium 8.4 mg/dL (8.6-10.3); Globulin 1.3 g/dL (2-4); Magnesium 2.8 mg/dL (1.9-2.7); Phosphorus 5.2 mg/dL (2.5-5.0); Total Bilirubin 1.4 mg/dL (0.2-1.0); Total Protein 4.9 g/dL (6.4-8.9); Uric Acid 7.8 mg/dL (2.3-6.6); eGFR CKD-EPI 68.8 (>60)
[2022-03-07 07:09] LABS: Potassium 5.1 mmol/L (3.5-5.0)
[2022-03-07 07:39] LABS: Macrocytosis 1+
[2022-03-07 07:40] LABS: Acanthocytes 1+; Tear Drop Cells 1+
[2022-03-07 07:41] LABS: ABS Lymphocytes 53.4 10^3/ul (1.0-4.8); ABS Monocytes 1.3 10^3/ul (0-0.8); ABS Neutrophils 8.1 10^3/ul (1.5-7.7)
[2022-03-07] MEDS: Cefepime 1 GM in Dextrose 1 GM/50 ML BAG IV SCH ×2 (07:57→20:43)
[2022-03-07] MEDS: PTO: Mirabegron 50 mg ER TAB (NF) PO SCH (08:37)
[2022-03-07] MEDS: Aspirin EC 81 mg TAB.EC (enteric coated) PO SCH (08:38)
[2022-03-08 06:24] LABS: Hematocrit 29 % (35-47); Hemoglobin 9.2 g/dL (12.0-16.0); Mean Corpuscular HGB Conc 32 g/dL (31-36); Mean Corpuscular Hemoglobin 32 pg (27-31); Mean Corpuscular Volume 100 fL (80-97); Mean Platelet Volume 8.9 fL (7.4-10.4); Platelet Count 145 10^3/uL (150-450); Red Blood Count 2.89 10^6 /uL (3.70-4.87); Red Cell Distribution Width 15 % (10-15); White Blood Count 56.4 10^3/uL (3.5-10.8)
[2022-03-08 07:05] LABS: Calcium 8.6 mg/dL (8.6-10.3); Magnesium 2.8 mg/dL (1.9-2.7); Phosphorus 3.2 mg/dL (2.5-5.0); Uric Acid 4.3 mg/dL (2.3-6.6); eGFR CKD-EPI 75.1 (>60)
[2022-03-08] MEDS: Aspirin EC 81 mg TAB.EC (enteric coated) PO SCH (08:53)
[2022-03-08] MEDS: PTO: Mirabegron 50 mg ER TAB (NF) PO SCH (08:53)
[2022-03-09 07:14] LABS: Hematocrit 29 % (35-47); Hemoglobin 9.3 g/dL (12.0-16.0); Mean Corpuscular HGB Conc 32 g/dL (31-36); Mean Corpuscular Hemoglobin 32 pg (27-31); Mean Corpuscular Volume 100 fL (80-97); Mean Platelet Volume 8.5 fL (7.4-10.4); Platelet Count 142 10^3/uL (150-450); Red Blood Count 2.87 10^6 /uL (3.70-4.87); Red Cell Distribution Width 15 % (10-15); White Blood Count 52.5 10^3/uL (3.5-10.8)
[2022-03-09] MEDS: PTO: Mirabegron 50 mg ER TAB (NF) PO SCH (07:23)
[2022-03-09] MEDS: Aspirin EC 81 mg TAB.EC (enteric coated) PO SCH (07:23)
[2022-03-09 07:24] LABS: Calcium 8.2 mg/dL (8.6-10.3); Magnesium 2.4 mg/dL (1.9-2.7); Potassium 4.7 mmol/L (3.5-5.0); eGFR CKD-EPI 72.9 (>60)
[2022-03-09 08:31] LABS: ABS Eosinophils 0.1 10^3/ul (0-0.6); ABS Lymphocytes 45.5 10^3/ul (1.0-4.8); ABS Monocytes 1.3 10^3/ul (0-0.8); ABS Neutrophils 5.6 10^3/ul (1.5-7.7); ABS Nucleated RBC 0.1 10^3/ul; Eosinophil % 0.3 %; Lymphocyte % 86.6 %; Nucleated Red Blood Cells % 0.1
[2022-03-09 10:46] VITALS: BP 106/55
== END 2022-03-09 14:45 | disposition home or self-care (01) | DRG 871 ==
LOC: ED 11:32 → EDHOLD 22:54 → SUATTDRO 22:54 → EDHOLD 03-02 00:19 → MED 03-02 01:02
PROVIDERS: ADMIT Internal Medicine; ATTEND Internal Medicine